=== PATIENT | female | born 1940 | race African-American/Black ===

== ENCOUNTER 2020-01-25 14:20 | Emergency (ER) | payer MEDICARE, SELFPAY ==
[2020-01-25 14:50] VITALS: BP 175/94; PULSE 85; RESP 18; TEMP 36.7; O2SAT 100; BMI 26.4
--- NOTE | 2020-01-25 14:59 | XR_ITS ---
EXAMINATION: XR SHOULDER , LEFT CLINICAL INFORMATION: COMPARISON: None available at the time of this dictation. TECHNIQUE: AP external rotation, Grashey, scapular Y, and axillary views of the shoulder. FINDINGS: BONES: There is no fracture or dislocation, no osteolytic or osteoblastic lesion. JOINTS: Glenohumeral joint is properly positioned. There is mild degenerative osteoarthritis of the acromioclavicular joint. SOFT TISSUE AND INCLUDED LUNG: Normal. 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 No fracture or dislocations.
--- NOTE | 2020-01-25 14:59 | XR_ITS ---
EXAMINATION: XR SHOULDER , LEFT CLINICAL INFORMATION: COMPARISON: None available at the time of this dictation. TECHNIQUE: AP external rotation, Grashey, scapular Y, and axillary views of the shoulder. FINDINGS: BONES: There is no fracture or dislocation, no osteolytic or osteoblastic lesion. JOINTS: Glenohumeral joint is properly positioned. There is mild degenerative osteoarthritis of the acromioclavicular joint. SOFT TISSUE AND INCLUDED LUNG: Normal. 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 No fracture or dislocations.
--- NOTE | 2020-01-25 15:00 | ED.EXTPRO ---
HPI - Extremity Problem General Chief complaint: Extremity Injury, Upper Stated complaint: ARM PAIN Time Seen by Provider: 01/25/20 14:59 Source: patient Mode of arrival: ambulatory History of Present Illness HPI Narrative: 79-year-old female with a past medical history of diabetes, hypertension, osteoporosis, presenting to ED complaining of left shoulder pain x1 year s/p 2 mechanical falls. Denies falls/injury recently. Reports pain/decreased ROM. Denies numbness, tingling, weakness MD Complaint: extremity pain Related Data Previous Rx's Medication Instructions Recorded acetaminophen [Tylenol Extra 500 mg PO Q6H PRN #20 tab 01/25/20 Strength] cyclobenzaprine 5 mg PO Q8H PRN 5 Days #14 tab 01/25/20 lidocaine [Lidoderm] 1 patch TOPICAL DAILY PRN #30 ea 01/25/20 MDD remove after 12 hours naproxen 500 mg PO BID PRN 10 Days #20 tab 01/25/20 Allergies Allergy/AdvReac Type Severity Reaction Status Date / Time No Known Allergies Allergy Mild NKA Unverified 11/14/19 16:54 N.K.D.A. Allergy Unknown Uncoded 09/06/19 00:00 Review of Systems Review of Systems: Constitutional: No Weight loss, No Fever, No Chills Musculoskeletal: + joint pain, No Myalgias, No Joint Swelling Skin: No Skin Lesions, No rash Neuro: No Weakness, No Numbness Yes all other systems are reviewed and are negative [facility] Past Medical History Attestation statement: The following information was validated with the patient. Medical History (Updated 01/25/20 @ 15:50 by CHEPE Michaud) Diabetes HTN (hypertension) Osteoporosis Social History Social History Alcohol intake: never Smoked in Last 30 Days: No Use of substances other than those prescribed or required for medical reasons: No Advance Directives: No Advance Directives Information Provided: No Physical Exam Vital Signs: Vital Signs: Last Vital Signs Temp 98.0 F 01/25/20 14:50 Pulse 85 01/25/20 14:50 Resp 18 01/25/20 14:50 BP 175/94 H 01/25/20 14:50 Pulse Ox 100 01/25/20 14:50 Body Mass Index 26.4 Const: General: cooperative and healthy appearing Orientation/consciousness: patient oriented x3 Limitations: no limitations HENMT: Head: Yes normal to inspection Ears: hearing grossly normal bilaterally General nose exam: Normal external nose present Face and sinus: Yes normal facial exam Eyes: General: appearance normal, both eyes and all related structures EOM: EOMs intact bilaterally Neck: Other: No midline cervical spinous tenderness. + left trapezius muscle tenderness Neck: Yes normal visual inspection Chest: Chest palpation & inspection: normal inspection of the chest Resp: Effort & Inspection: normal respiratory effort Cardio: Rate: regular rate Peripheral pulses: radial pulses present Skin: Rashes: no rashes Wounds: no wounds Neuro: General: patient oriented x3 Gait exam (Neuro): Normal gait present Extrem: Other: + lateral left clavicular ttp and + left shoulder ttp. No appreciable deformity. Left shoulder internal rotation, and abduction limited secondary to pain. NV intact General: Yes normal to inspection Course Course Course Narrative: -osteoarthritis. No fracture or dislocation> results discussed with squaring machine operator. Discussed follow-up with Orthopedics for likely MRI. Patient verbalized understanding feel safe for discharge home MDM - Extremity (Nontraumatic) MDM Narrative Medical decision making narrative: Concern for old fracture vs tendon/ligamental injury vs MSK pain Discharge Plan Discharge Clinical Impression: Left shoulder pain Qualifiers: Chronicity: acute Qualified Code(s): M25.512 - Pain in left shoulder Patient Disposition: Home, Self-Care Instructions: Shoulder Pain (ED) Additional Instructions: Your x-ray showed degenerative osteoarthritis, no fracture or dislocation. You need to follow-up with an real estate specialist, likely need MRI to evaluate her tendons/ligaments. Flexeril as a muscle relaxer, take at night makes you drowsy, do not drive, drink alcohol, or operate machinery while taking it. Naproxen as anti-inflammatory/pain medication, take with food. In addition take Tylenol. Lidoderm patches or numbing patches, apply to painful area. If symptoms persist or worsen, become unbearable, you develop weakness return to the ED Almonte radiograf?a mostr? osteoartritis degenerativa, sin fractura ni dislocaci?n. Debe realizar un seguimiento con un especialista en ortopedia, probablemente necesite fernando resonancia magn?yasmin para evaluar chris tendones / ligamentos. Flexeril aurelio relajante muscular, tomarlo por la noche le produce liliane?o, no conducir, beber alcohol ni manejar maquinaria mientras lo nany. Naproxeno aurelio medicamento antiinflamatorio / analg?sico, t?mahoney con alimentos. Adem?s, tome Tylenol. Los parches de Lidoderm o los parches adormecedores se aplican en el ?shantel dolorida. Si los s?ntomas persisten o empeoran, se vuelven insoportables, desarrolla debilidad, vuelve al servicio de urgencias Prescriptions: New acetaminophen [Tylenol Extra Strength] 500 mg tablet 500 mg PO Q6H PRN (Reason: pain or fever) Qty: 20 RF: 0 lidocaine [Lidoderm] 5 % adhesive patch,medicated 1 patch topical DAILY MDD remove after 12 hours PRN (Reason: pain) Qty: 30 RF: 0 naproxen 500 mg tablet 500 mg PO BID PRN (Reason: pain) 10 Days Qty: 20 RF: 0 cyclobenzaprine 5 mg tablet 5 mg PO Q8H PRN (Reason: pain (scale score 7-10)) 5 Days Qty: 14 RF: 0 Referrals: Alondra Butt MD [Physician] - 1 week Print Language: Kiswahili
[2020-01-25] MEDS: Acetaminophen 325 MG TABLET 650 MG PO (15:26)
[2020-01-25] MEDS: oxyCODONE HCl Immed Release 5 MG TABLET PO (15:26)
== END 2020-01-25 16:13 | disposition home or self-care (01) ==
PROVIDERS: Emergency Provider Internal Medicine
DX: M25.512 Pain in left shoulder (principal); E11.9 Type 2 diabetes mellitus without complications; Z79.899 Other long term (current) drug therapy
CPT/HCPCS: 73000; 73030; 99283

== ENCOUNTER 2020-01-30 07:45 | Outpatient (REF) | payer MEDICARE, SELFPAY ==
--- NOTE | 2020-01-30 08:45 | P.BOP_ITS ---
Brief Operative Note Date of Service: 01/30/20 Pre-op diagnosis: Nontoxic multinodular goiter Post-op diagnosis: same Procedure: This procedure was explained to the patient. Alternatives, risks and benefits were discussed. Written consent was obtained. After sterile preparation of the skin, fine-needle aspiration biopsy of Right mid pole medial thyroid nodule size 1.2 x 0.9 x 1.1 cm was performed under direct ultrasound guidance to confirm accurate needle placement. This nodule had a calcified border. Several attempts were performed only 1 pass went through the calcified capsule. No further attempts were performed. Attemps were performed with 27 gauge needles. Sample was submitted to cytology, initial cytology reading was adequate. No passes were dedicated for [employer] genomic sequencing dental treatment coordinator test. Patient tolerated procedure well. Aftercare instructions were provided. Ultrasound had described a left mid pole nodule which was very heterogeneous ill-defined slightly hypoechoic. On real-time ultrasound this was just an area of heterogeneity. No biopsy was performed in the left lobe. Impression: uncomplicated fine-needle aspiration biopsy of right mid pole medial thyroid nodule under direct ultrasound guidance. Surgeon: Boone Hebert MD Anesthesia: local (Lidocaine 1% 2 mL) Estimated blood loss (mL): 0 Condition: stable Disposition: same day
[2020-01-30] MEDS: Lidocaine HCl 1 % MPF 5 ML VIAL SUBCUT (11:49)
== END 2020-01-30 07:46 | disposition home or self-care (01) ==
LOC: HO.US 07:45
PROVIDERS: Visit Provider Internal Medicine Endocrinology, Diabetes & Metabolism
DX: E04.2 Nontoxic multinodular goiter (principal)
CPT/HCPCS: 10005; 88172; 88173

== ENCOUNTER → 2020-02-11 09:40 | Outpatient (BNVA) | payer MEDICARE, SELFPAY | PROVIDERS: Visit Provider Orthopaedic Surgery | DX: M75.42 Impingement syndrome of left shoulder (principal) | CPT/HCPCS: 20610; 99202; J1040 ==

== ENCOUNTER → 2020-02-12 08:15 | Outpatient (BNVA) | payer MEDICARE, SELFPAY | PROVIDERS: PCP Internal Medicine; Referring Provider Internal Medicine; Visit Provider Internal Medicine Endocrinology, Diabetes & Metabolism | DX: Z13.89 Encounter for screening for other disorder (principal) | CPT/HCPCS: Q3014 ==

== ENCOUNTER 2020-02-24 10:10 | Outpatient (REF) | payer MEDICARE, SELFPAY ==
[2020-02-24 11:18] LABS: Albumin Level 4.1 g/dL (3.5-5.0); Calcium 9.3 mg/dL (8.4-10.2)
[2020-02-24 11:48] LABS: Thyroid Stimulating Hormone 8.39 uIU/mL (0.32-4.0); Vitamin D 25-OH Total 26.9 ng/mL (>30)
[2020-02-25 20:22] LABS: Calcium (PTHI) 9.4 mg/dL (8.6-10.4); PTHI 59 pg/mL (14-64)
[2020-02-27 21:47] LABS: VITAMIN D (1,25 OH) D3 62 pg/mL; Vit D (1,25-Dihydroxy) Total 62 pg/mL (18-72); Vitamin D (1,25 OH) D2 <8 pg/mL
[2020-03-02 02:07] LABS: N-Telopeptide 33 (see note); NTXCreaRU 43 mg/dL (20-275)
== END 2020-02-24 10:11 | disposition home or self-care (01) ==
LOC: HO.LAB 10:10
PROVIDERS: PCP Internal Medicine; Visit Provider Internal Medicine Endocrinology, Diabetes & Metabolism
DX: M81.0 Age-related osteoporosis without current pathological fracture (principal); E04.2 Nontoxic multinodular goiter; R89.9 Unspecified abnormal finding in specimens from other organs, systems and tissues
CPT/HCPCS: 82040; 82306; 82310; 82523; 82652; 83970; 84439; 84443

== ENCOUNTER 2020-05-15 | Outpatient (REF) | payer MEDICARE, SELFPAY ==
--- NOTE | ~2020-05-15 | XR_ITS ---
EXAMINATION: XR DORSAL SPINE XR LUMBAR SPINE CLINICAL INFORMATION: Low back pain and midback pain. COMPARISON: None TECHNIQUE: Lumbar spine 5 views. Dorsal spine 3 views. FINDINGS: LUMBAR SPINE: There is normal lumbar lordosis. The vertebral heights and alignment are normal. There is loss of L5-S1 disc height. There is no pars defect or listhesis. No visible acute fracture, dislocation or lytic process seen. The soft tissues are normal. The SI joints are normal. DORSAL SPINE: There is normal thoracic kyphosis. The vertebral heights, alignment and disc heights are normal. There is no visible acute fracture, dislocation or lytic process seen. There is a bilobed calcification right anterior neck adjacent to the trachea question lymph node. XR/XR lumbar spine 4V min IMPRESSION: Degenerative disc changes with vacuum disc phenomena L5-S1 disc level. No pars defect or listhesis seen. Unremarkable dorsal spine exam.
--- NOTE | ~2020-05-15 | XR_ITS ---
EXAMINATION: XR DORSAL SPINE XR LUMBAR SPINE CLINICAL INFORMATION: Low back pain and midback pain. COMPARISON: None TECHNIQUE: Lumbar spine 5 views. Dorsal spine 3 views. FINDINGS: LUMBAR SPINE: There is normal lumbar lordosis. The vertebral heights and alignment are normal. There is loss of L5-S1 disc height. There is no pars defect or listhesis. No visible acute fracture, dislocation or lytic process seen. The soft tissues are normal. The SI joints are normal. DORSAL SPINE: There is normal thoracic kyphosis. The vertebral heights, alignment and disc heights are normal. There is no visible acute fracture, dislocation or lytic process seen. There is a bilobed calcification right anterior neck adjacent to the trachea question lymph node. XR/XR thoracic spine 3V IMPRESSION: Degenerative disc changes with vacuum disc phenomena L5-S1 disc level. No pars defect or listhesis seen. Unremarkable dorsal spine exam.
== END 2020-05-15 00:01 ==
LOC: HO.XRAY
PROVIDERS: PCP Family Medicine; Visit Provider Emergency Medicine
DX: M75.42 Impingement syndrome of left shoulder (principal); M54.5 Low back pain; M54.9 Dorsalgia, unspecified; E11.9 Type 2 diabetes mellitus without complications; I10 Essential (primary) hypertension; E03.9 Hypothyroidism, unspecified; E04.2 Nontoxic multinodular goiter; M81.0 Age-related osteoporosis without current pathological fracture; E55.9 Vitamin D deficiency, unspecified
CPT/HCPCS: 20610; 72072; 72110; 99212; J1040

== ENCOUNTER 2020-05-21 09:35 | Outpatient (REF) | payer MEDICARE, SELFPAY ==
--- NOTE | 2020-05-21 10:39 | PM.OP ---
Brief Operative Note Date of Service: 05/21/20 Pre-op diagnosis: NONTOXIC MULTINODULAR GOITER Post-op diagnosis: same Procedure: This procedure was explained to the patient. Alternatives, risks and benefits were discussed. Written consent was obtained. After sterile preparation of the skin, fine-needle aspiration biopsy of right mid pole medial thyroid nodule size 1.2 x 0.9 x 1.1 cm was performed under direct ultrasound guidance to confirm accurate needle placement. Three passes were performed with 27 gauge needles. Sample was submitted to cytology, initial cytology reading was non diagnostic. This nodule has egg shell calcified under nodule. Was unable to penetrate the nodule well. As I was not getting any follicular cells I stop the procedure. Patient tolerated procedure well. Aftercare instructions were provided. Impression: uncomplicated fine-needle aspiration biopsy of right mid medial thyroid nodule attempt under direct ultrasound guidance. Surgeon: Boone Hebert MD Anesthesia: local (Lidocaine 1%) Estimated blood loss (mL): 0 Condition: stable Disposition: same day
== END 2020-05-21 09:36 | disposition home or self-care (01) ==
LOC: HO.US 09:35
PROVIDERS: Visit Provider Internal Medicine Endocrinology, Diabetes & Metabolism
DX: R89.9 Unspecified abnormal finding in specimens from other organs, systems and tissues (principal); E04.2 Nontoxic multinodular goiter
CPT/HCPCS: 88172; 88173; 88177

== ENCOUNTER 2020-10-06 08:47 | Outpatient (REF) | payer MEDICARE, SELFPAY ==
--- NOTE | ~2020-10-06 | US_ITS ---
EXAMINATION: US THYROID CLINICAL INFORMATION: Unspecified abnormal findings and specimens from other organs, systems and tissues. COMPARISON: Ultrasound thyroid soft tissues neck 09/16/2019 and 10/12/2007. TECHNIQUE: Linear transducer grayscale and color Doppler examination with attention to the region of the thyroid. FINDINGS: SIZE: Measurements of the thyroid lobes and nodules are given in sagittal, anteroposterior and transverse dimensions respectively. Right Thyroid Lobe: 4.4 x 1.3 x 1.9 cm, volume 5.5 mL. Previously 5.1 x 1.7 x 1.6 cm, volume 7.2 mL. Parenchyma: The gland echotexture is heterogeneous. Thyroid vascularity is normal. Left Thyroid Lobe: 5.2 x 1.4 x 1.2 cm, volume 4.6 mL. Previously 4.5 x 1.3 x 1.4 cm, volume 4.2 mL. Parenchyma: The gland echotexture is heterogeneous. Thyroid vascularity is normal. Isthmus: 0.6 cm in maximum AP dimension. Previously 0.3 cm. Estimated total number of nodules greater than or equal to 1 cm: 3. [employer] [id number] Lead nodules are described as follows: 1. Location: Left lower pole. Size: 1.6 x 1.3 x 1.1 cm, volume 1.2 mL. Previously: 1.3 x 0.9 x 1.2 cm, volume 0.7 mL. Nodule characteristics: Composition: Solid/almost completely solid (2). Echogenicity: Isoechoic (1). Shape: Not taller than wide (0). Margins: Lobulated (2). Echogenic Foci: None (0). ACR TI-RADS total points: 5 ACR TI-RADS category: 4 Significant change in size (>/= 20% in 2 dimensions and minimal increase of 2 mm or 50% or greater increase in volume): Yes Change in features: No Change in ACR TI-RADS risk category: No 2. Location: Right upper. Size: 0.8 x 0.7 x 0.6 cm, volume 0.2 mL. Previously: 0.8 x 0.5 x 0.6 cm, volume 0.1 mL. Nodule characteristics: Composition: Solid (2). Echogenicity: Isoechoic (1). Shape: Not taller than wide (0). Margins: Smooth (0). Echogenic Foci: None (0). ACR TI-RADS total points: 3 ACR TI-RADS category: 3 Significant change in size (>/= 20% in 2 dimensions and minimal increase of 2 mm or 50% or greater increase in volume): No Change in features: No Change in ACR TI-RADS risk category: No 3. Location: Right midpole. Size: 1.0 x 0.9 x 0.8 cm, volume 0.4 mL. Previously: 1.0 x 0.8 x 0.9 cm, volume 0.4 mL. Nodule characteristics: Composition: Cannot be determined (2). Echogenicity: Cannot be determined (1). Shape: Not taller than wide (0). Margins: Smooth (0). Echogenic Foci: Peripheral calcifications (2). ACR TI-RADS total points: 5 ACR TI-RADS category: 4 Significant change in size (>/= 20% in 2 dimensions and minimal increase of 2 mm or 50% or greater increase in volume): No Change in features: No Change in ACR TI-RADS risk category: No 4. Location: Right midpole. Size: 1.2 x 0.8 x 0.8 cm, volume 0.4 mL. Previously: 1.2 x 0.9 x 1.1 cm, volume 0.6 mL. Nodule characteristics: Composition: Cannot be determined (2). Echogenicity: Cannot be determined (1). Shape: Not taller than wide (0). Margins: Smooth (0). Echogenic Foci: Peripheral calcifications (2). ACR TI-RADS total points: 5 ACR TI-RADS category: 4 Significant change in size (>/= 20% in 2 dimensions and minimal increase of 2 mm or 50% or greater increase in volume): No Change in features: No Change in ACR TI-RADS risk category: No 5. Location: Right midpole. Size: 0.8 x 0.7 x 0.3 cm, volume 0.1 mL. Previously: Not seen previously. Nodule characteristics: Composition: Solid (2). Echogenicity: Isoechoic (1). Shape: Not taller than wide (0). Margins: Smooth (0). Echogenic Foci: None (0). ACR TI-RADS total points: 3 ACR TI-RADS category: 3 Significant change in size (>/= 20% in 2 dimensions and minimal increase of 2 mm or 50% or greater increase in volume): Not applicable Change in features: Not applicable Change in ACR TI-RADS risk category: Not applicable. The nodule is new. NODES: No lymphadenopathy is seen in the tissue surrounding the thyroid gland. US/US thyroid IMPRESSION: 1. There is a normal-sized thyroid gland which is heterogeneous but with normal vascularity. 2. A total of 5 nodules are seen in the gland. 3. The nodules aren't TR 3 and TR 4 and biopsy is not suggested at this time. Follow-up ultrasound is recommended as noted below. ACR TI-RADS RECOMMENDATION REFERENCE: Ultrasound-guided fine-needle aspiration, followup ultrasound, no further follow up. * TR1 (0 point) and TR 2 (2 points): No FNA or follow up * TR3 (3 points): FNA if more than or equal to 2.5 cm in maximum dimension, followup ultrasound in 1, 3 and 5 years if 1.5 to 2.4 cm in maximum dimension. * TR4 (4-6 points): FNA if more than or equal to 1.5 cm in maximum dimension, followup ultrasound in 1, 2, 3 and 5 years if 1 to 1.4 cm in maximum dimension. * TR5 (more than or equal to 7 points): FNA if more than or equal to 1 cm in maximum dimension, followup ultrasound every year for 5 years if 0.5 to 0.9 cm in maximum dimension. * TR3, TR4 or TR5 nodules that are below the size threshold for follow up receive no follow up.
== END 2020-10-06 08:48 | disposition home or self-care (01) ==
LOC: HO.US 08:47
PROVIDERS: PCP Family Medicine; Visit Provider Internal Medicine Endocrinology, Diabetes & Metabolism
DX: R89.9 Unspecified abnormal finding in specimens from other organs, systems and tissues (principal); E04.2 Nontoxic multinodular goiter
CPT/HCPCS: 76536

== ENCOUNTER 2020-11-18 09:28 | Outpatient (REF) | payer MEDICARE, SELFPAY ==
--- NOTE | ~2020-11-18 | MM_ITS ---
EXAMINATION: BONE DENSITOMETRY CLINICAL INDICATION: Osteoporosis. COMPARISON: Previous BD dated 11/02/2018 and baseline BD dated 04/29/2008. TECHNIQUE: Using a [employer] DXA System (software version: 13.1) manufactured by [employer], dual-energy x-ray absorptiometry was performed of the lumbar spine and left hip. The images are of good technical quality. Summary results are attached. FINDINGS: AP SPINE L1-L4: Current: BMD 0.733 g/cm2, Z-score -1.5, T-score -3.7, osteoporosis, 0.4% decrease from previous, 0.3% decrease from baseline (<5% change is not significant). Prior: BMD 0.736 g/cm2. Baseline: BMD 0.735 g/cm2. LEFT FEMUR, NECK: Current: BMD 0.604 g/cm2, Z-score -0.8, T-score -3.1, osteoporosis. Prior: BMD 0.692 g/cm2. Baseline: BMD 0.627 g/cm2. LEFT FEMUR, TOTAL: Current: BMD 0.628 g/cm2, Z-score -0.8, T-score -3.0, osteoporosis, 11.4% decrease from previous, 1.6% decrease from baseline (<5% change is not significant). Prior: BMD 0.709 g/cm2. Baseline: BMD 0.638 g/cm2. IDENTIFIED RISK FACTORS: Menopause, osteoporosis, low calcium intake. HISTORY OF FRACTURE: None listed. MEDICATIONS: Calcium, vitamin D. MM/XR DEXA axial skeleton IMPRESSION: 1. DIAGNOSIS: Osteoporosis based on the lowest T-score value of -3.7 in the lumbar spine applying World Health Organization criteria. 2. 10-YEAR FRACTURE RISK PREDICTION, FRAX: Major osteoporotic fracture (clinical spine, forearm, hip or shoulder) 15.5%. Hip fracture 6.5%. 3. Treatment Recommendations: NOF guidelines recommend consideration for treatment in postmenopausal women and men age 50 and older presenting with the following: -A hip or vertebral (clinical or morphometric) fracture. -T-score less than or equal to -2.5 at the femoral neck or spine after appropriate evaluation to exclude secondary causes. -Low bone mass at the hip or spine and a 10-year fracture probability by FRAX of greater than or equal to 3% for hip fracture or greater than or equal to 20% for major osteoporotic fracture based on the [place] adapted WHO algorithm. 4. Other Recommendations: All treatment decisions require clinical judgment and consideration of individual patient factors, including patient preferences, comorbidities, previous drug use, risk factors not captured in the FRAX model (e.g. frailty, falls, vitamin D deficiency, increased bone turnover, interval significant decline in bone density) and possible under or overestimation of fracture risk by FRAX. Additional medical evaluation for secondary cause of low bone mineral density may be appropriate. FUTURE SCAN RECOMMENDATION: People with diagnosed cases of osteoporosis or at high risk for fracture should have regular bone mineral density tests. For patients eligible for Medicare, routine testing is allowed once every 2 years. The testing frequency can be increased to one year for patients who have rapidly progressing disease, those who are receiving or discontinuing medical therapy to restore bone mass, or have additional risk factors.
== END 2020-11-18 09:29 | disposition home or self-care (01) ==
LOC: HO.MAMMO 09:28
PROVIDERS: PCP Family Medicine; Visit Provider Family Medicine
DX: Z13.820 Encounter for screening for osteoporosis (principal); M81.0 Age-related osteoporosis without current pathological fracture; Z78.0 Asymptomatic menopausal state; Z79.899 Other long term (current) drug therapy
CPT/HCPCS: 77080

== ENCOUNTER 2020-12-15 09:40 | Outpatient (REF) | payer MEDICARE, SELFPAY ==
--- NOTE | ~2020-12-15 | XR_ITS ---
EXAMINATION: XR SHOULDER, LEFT CLINICAL INFORMATION: Left shoulder pain. COMPARISON: 01/25/2020 TECHNIQUE: AP external rotation, Grashey, scapular Y, and axillary views of the left shoulder. FINDINGS: The bones and soft tissues are normal aside from redemonstration of mild degenerative changes at the acromioclavicular joint. No fracture. Glenohumeral alignment is anatomic with normal joint space. No abnormal soft tissue calcifications. XR/XR shoulder LT min 2V IMPRESSION: Mild degenerative changes AC joint again noted.
== END 2020-12-15 09:41 | disposition home or self-care (01) ==
LOC: HO.XRAY 09:40
PROVIDERS: PCP Family Medicine; Visit Provider Family Medicine
DX: M25.512 Pain in left shoulder (principal)
CPT/HCPCS: 73030

== ENCOUNTER → 2021-01-04 09:39 | Outpatient (BNVA) | payer OTHER, SELFPAY | PROVIDERS: PCP Family Medicine; Visit Provider Physician Assistant | DX: M75.02 Adhesive capsulitis of left shoulder (principal) | CPT/HCPCS: 20610; 99212; J1040 ==

== ENCOUNTER → 2021-03-01 09:32 | Outpatient (BNVA) | payer MEDICARE, SELFPAY | PROVIDERS: PCP Family Medicine; Visit Provider Physician Assistant | DX: M75.02 Adhesive capsulitis of left shoulder (principal) | CPT/HCPCS: 99212 ==

== ENCOUNTER → 2021-04-13 09:28 | Outpatient (BNVA) | payer MEDICARE, SELFPAY | PROVIDERS: PCP Family Medicine; Visit Provider Internal Medicine Endocrinology, Diabetes & Metabolism | DX: E06.3 Autoimmune thyroiditis (principal); E03.8 Other specified hypothyroidism; E04.2 Nontoxic multinodular goiter; M81.0 Age-related osteoporosis without current pathological fracture; Z79.899 Other long term (current) drug therapy | CPT/HCPCS: 99212 ==

== ENCOUNTER 2021-04-16 09:37 | Outpatient (REF) | payer MEDICARE, SELFPAY ==
[2021-04-16 11:27] LABS: Free T4 (Free Thyroxine) 0.87 ng/dL (0.71-1.85); Thyroid Stimulating Hormone 3.19 uIU/mL (0.32-4.0)
[2021-04-20 10:46] LABS: PEU-Protein Creat Ratio Rand 0.231 (0.021-0.161); PEU-Rand. Prot/Creat Ratio 231 mg/g creat (21-161); PEU-Random Ur. Gamma Globulin 0 %; PEU-Random Urine A1 Globulin 0 %; PEU-Random Urine A2 Globulin 0 %; PEU-Random Urine Albumin 100 %; PEU-Random Urine Beta Globulin 0 %; PEU-Random Urine Creatinine 26 mg/dL (20-275); PEU-Random Urine Protein 6 mg/dL (5-24)
[2021-04-20 16:01] LABS: Prot Elec - Albumin 4.4 g/dL (3.8-4.8); Prot Elec - Alpha1 0.3 g/dL (0.2-0.3); Prot Elec - Alpha2 0.8 g/dL (0.5-0.9); Prot Elec - Beta 1 0.4 g/dL (0.4-0.6); Prot Elec - Beta 2 0.3 g/dL (0.2-0.5); Prot Elec - Gamma 0.8 g/dL (0.8-1.7); Prot Elec - Total Protein 6.9 g/dL (6.1-8.1)
== END 2021-04-16 09:38 | disposition home or self-care (01) ==
LOC: HO.LAB 09:37
PROVIDERS: PCP Family Medicine; Visit Provider Internal Medicine Endocrinology, Diabetes & Metabolism
DX: E04.2 Nontoxic multinodular goiter (principal); M81.0 Age-related osteoporosis without current pathological fracture
CPT/HCPCS: 82570; 84156; 84165; 84166; 84439; 84443

== ENCOUNTER → 2021-04-26 09:35 | Outpatient (BNVA) | payer MEDICARE, SELFPAY | PROVIDERS: PCP Family Medicine; Visit Provider Physician Assistant | DX: M75.02 Adhesive capsulitis of left shoulder (principal); M75.102 Unspecified rotator cuff tear or rupture of left shoulder, not specified as traumatic | CPT/HCPCS: 20610; 99212; J1020 ==

== ENCOUNTER → 2021-05-04 09:22 | Outpatient (BNVA) | payer MEDICARE, SELFPAY | PROVIDERS: PCP Family Medicine; Visit Provider Internal Medicine Endocrinology, Diabetes & Metabolism | DX: Z13.89 Encounter for screening for other disorder (principal) ==

== ENCOUNTER → 2021-10-25 09:11 | Outpatient (BNVA) | payer MEDICARE, SELFPAY | PROVIDERS: PCP Family Medicine; Visit Provider Physician Assistant | DX: M75.02 Adhesive capsulitis of left shoulder (principal); M75.102 Unspecified rotator cuff tear or rupture of left shoulder, not specified as traumatic; E11.9 Type 2 diabetes mellitus without complications | CPT/HCPCS: 99212; J1020 ==

== ENCOUNTER 2021-11-11 09:49 | Outpatient (REF) | payer OTHER, SELFPAY ==
--- NOTE | ~2021-11-11 | US_ITS ---
EXAMINATION: US THYROID CLINICAL INFORMATION: Nontoxic multinodular goiter. COMPARISON: Ultrasound soft tissue head/neck thyroid dated 10/06/2020 and 09/16/2019. TECHNIQUE: Linear transducer grayscale and color Doppler examination with attention to the region of the thyroid. FINDINGS: SIZE: Measurements of the thyroid lobes and nodules are given in sagittal, anteroposterior and transverse dimensions respectively. Right Thyroid Lobe: 4.9 x 1.6 x 1.8 cm, volume 7.4 mL. Previously 4.4 x 1.3 x 1.9 cm, volume 5.5 mL. Parenchyma: The gland echotexture is heterogeneous. Thyroid vascularity is normal. Left Thyroid Lobe: 4.3 x 1.2 x 1.3 cm, volume 3.5 mL. Previously 5.2 x 1.4 x 1.2 cm, volume 4.6 mL. Parenchyma: The gland echotexture is heterogeneous. Thyroid vascularity is normal. Isthmus: 0.4 cm in maximum AP dimension. Previously 0.3 cm. Estimated total number of nodules greater than or equal to 1 cm: 3. [employer] nodules are described as follows: 1. Location: Right superior. Size: 0.8 x 0.4 x 0.5 cm, volume 0.1 mL. Previously: 0.8 x 0.7 x 0.6 cm, volume 0.2 mL. Nodule characteristics: Composition: Solid (2). Echogenicity: Hypoechoic (2). Shape: Not taller than wide (0). Margins: Smooth (0). Echogenic Foci: None (0). ACR TI-RADS total points: 4 ACR TI-RADS category: 4 Significant change in size (>/= 20% in 2 dimensions and minimal increase of 2 mm or 50% or greater increase in volume): No 2. Location: Right mid medial. Size: 1.1 x 0.8 x 1.0 cm, volume 0.2 mL. Previously: 1.0 x 0.9 x 0.8 cm, volume 0.4 mL. Nodule characteristics: Composition: Cannot be determined (2). Echogenicity: Cannot be determined (1). Shape: Not taller than wide (0). Margins: Smooth (0). Echogenic Foci: Peripheral calcifications (2). ACR TI-RADS total points: 5 Previous: 5 ACR TI-RADS category: 4 Previous: 4 Significant change in size (>/= 20% in 2 dimensions and minimal increase of 2 mm or 50% or greater increase in volume): No 3. Location: Right mid lateral. Size: 1.3 x 1.0 x 1.1 cm, volume 0.7 mL. Previously: 1.2 x 0.8 x 0.8 cm, volume 0.4 mL. Nodule characteristics: Composition: Cannot be determined (2). Echogenicity: Cannot be determined (1). Shape: Not taller than wide (0). Margins: Smooth (0). Echogenic Foci: Peripheral calcifications (2). ACR TI-RADS total points: 5 Previous: 5 ACR TI-RADS category: 4 Previous: 4 Significant change in size (>/= 20% in 2 dimensions and minimal increase of 2 mm or 50% or greater increase in volume): Yes 4. Location: Left inferior. Size: 1.3 x 0.8 x 0.9 cm, volume 0.5 mL. Previously: 1.6 x 1.3 x 1.1 cm, volume 1.2 mL. Nodule characteristics: Composition: Solid (2). Echogenicity: Hyperechoic (1). Shape: Taller than wide (3), in retrospect unchanged from prior. Margins: Smooth (0), in retrospect unchanged from prior. Echogenic Foci: None (0). ACR TI-RADS total points: 6 ACR TI-RADS category: 4 Significant change in size (>/= 20% in 2 dimensions and minimal increase of 2 mm or 50% or greater increase in volume): No NODES: No lymphadenopathy is seen in the tissue surrounding the thyroid gland. US/US thyroid IMPRESSION: 1.3 cm TR 4 right mid thyroid lateral thyroid nodule is increased in size from prior which meets criteria for tissue sampling if not already obtained. Stable 1.1 cm TR 4 right mid medial thyroid nodule and stable 1.3 cm TR 4 left inferior thyroid nodule which meets criteria for tissue sampling not already obtained. A 0.8 cm TR 4 right superior thyroid nodule is unchanged in size. This does not meet criteria for follow-up given size less than 1 cm. ACR TI-RADS RECOMMENDATION REFERENCE: Ultrasound-guided fine-needle aspiration, followup ultrasound, no further follow up. * TR1 (0 point) and TR 2 (2 points): No FNA or follow up * TR3 (3 points): FNA if more than or equal to 2.5 cm in maximum dimension, followup ultrasound in 1, 3 and 5 years if 1.5 to 2.4 cm in maximum dimension. * TR4 (4-6 points): FNA if more than or equal to 1.5 cm in maximum dimension, followup ultrasound in 1, 2, 3 and 5 years if 1 to 1.4 cm in maximum dimension. * TR5 (more than or equal to 7 points): FNA if more than or equal to 1 cm in maximum dimension, followup ultrasound every year for 5 years if 0.5 to 0.9 cm in maximum dimension. * TR3, TR4 or TR5 nodules that are below the size threshold for follow up receive no follow up.
== END 2021-11-11 09:50 | disposition home or self-care (01) ==
LOC: HO.US 09:49
PROVIDERS: PCP Family Medicine; Visit Provider Internal Medicine Endocrinology, Diabetes & Metabolism
DX: E04.2 Nontoxic multinodular goiter (principal)
CPT/HCPCS: 76536

== ENCOUNTER 2022-05-23 14:58 | Outpatient (REF) | payer OTHER, SELFPAY ==
--- NOTE | ~2022-05-23 | XR_ITS ---
EXAMINATION: XR RIBS, RIGHT WITH PA CHEST CLINICAL INFORMATION: Pain status-post fall. COMPARISON: Chest radiographs dated 07/27/2017. TECHNIQUE: 3 views of the left ribs were obtained, together with a PA view of the chest. FINDINGS: There is mild bibasilar linear scar/subsegmental atelectasis. No consolidation, pneumothorax, or pleural effusion. The cardiomediastinal silhouette and pulmonary vasculature are normal. There are calcified mediastinal lymph nodes, unchanged from comparison. A benign, calcified nodule seen at the medial right apex. There are atherosclerotic calcifications and tortuosity of the thoracic aorta. Osseous structures are unremarkable. Ribs are intact. No fractures are identified. XR/XR thoracic spine 2V IMPRESSION: There is mild bibasilar linear atelectasis. No pleural effusion or pneumothorax is seen. No focal rib fracture is noted. EXAMINATION: XR THORACIC SPINE CLINICAL INFORMATION: Pain status-post fall. COMPARISON: None available. TECHNIQUE: Frontal, lateral and swimmer's views of the thoracic spine were obtained. FINDINGS: There is a mild to moderate T12 anterior wedge compression fracture, which is unchanged from 05/15/2020. Vertebral body heights are otherwise normal. Alignment is normal, and the disc spaces are well-maintained. No acute fracture or spondylolisthesis is seen. The posterior elements are intact. There are aortic atherosclerotic calcifications. IMPRESSION: 1. There is a stable mild to moderate T12 anterior wedge compression fracture. 2. No acute fracture or spondylolisthesis is seen. 3. No thoracic disc spaces are well-maintained.
--- NOTE | ~2022-05-23 | XR_ITS ---
EXAMINATION: XR RIBS, RIGHT WITH PA CHEST CLINICAL INFORMATION: Pain status-post fall. COMPARISON: Chest radiographs dated 07/27/2017. TECHNIQUE: 3 views of the left ribs were obtained, together with a PA view of the chest. FINDINGS: There is mild bibasilar linear scar/subsegmental atelectasis. No consolidation, pneumothorax, or pleural effusion. The cardiomediastinal silhouette and pulmonary vasculature are normal. There are calcified mediastinal lymph nodes, unchanged from comparison. A benign, calcified nodule seen at the medial right apex. There are atherosclerotic calcifications and tortuosity of the thoracic aorta. Osseous structures are unremarkable. Ribs are intact. No fractures are identified. XR/XR ribs RT min 3V w CXR1V IMPRESSION: There is mild bibasilar linear atelectasis. No pleural effusion or pneumothorax is seen. No focal rib fracture is noted. EXAMINATION: XR THORACIC SPINE CLINICAL INFORMATION: Pain status-post fall. COMPARISON: None available. TECHNIQUE: Frontal, lateral and swimmer's views of the thoracic spine were obtained. FINDINGS: There is a mild to moderate T12 anterior wedge compression fracture, which is unchanged from 05/15/2020. Vertebral body heights are otherwise normal. Alignment is normal, and the disc spaces are well-maintained. No acute fracture or spondylolisthesis is seen. The posterior elements are intact. There are aortic atherosclerotic calcifications. IMPRESSION: 1. There is a stable mild to moderate T12 anterior wedge compression fracture. 2. No acute fracture or spondylolisthesis is seen. 3. No thoracic disc spaces are well-maintained.
--- NOTE | ~2022-05-23 | XR_ITS ---
EXAMINATION: XR HIP, RIGHT WITH AP PELVIS CLINICAL INFORMATION: Right hip pain status-post fall. COMPARISON: None available. TECHNIQUE: Two views of the right hip are submitted, together with a frontal view the pelvis. FINDINGS: Bones and soft tissues are normal. No fracture. Alignment is anatomic. Hip joint spaces are well-maintained. The sacroiliac joints are symmetric and well-maintained. Pubic symphysis is intact. There are atherosclerotic calcifications. XR/XR hip RT w PEL1V IMPRESSION: Normal right hip and pelvis radiographs.
== END 2022-05-23 14:59 | disposition home or self-care (01) ==
LOC: HO.XRAY 14:58
PROVIDERS: PCP Family Medicine; Visit Provider Registered Nurse
DX: M25.551 Pain in right hip (principal); R07.81 Pleurodynia; M54.6 Pain in thoracic spine; Z91.81 History of falling
CPT/HCPCS: 71101; 72070; 73502

== ENCOUNTER 2022-08-08 21:23 | Observation (INO) | payer OTHER, SELFPAY ==
--- NOTE | ~2022-08-08 | CT_ITS ---
EXAMINATION: CT ABDOMEN AND PELVIS WITHOUT CONTRAST CLINICAL INFORMATION: Right-sided pain COMPARISON: Thoracic spine films 05/23/2022 and CTA chest 03/12/2008 TECHNIQUE: Multidetector volumetric imaging was performed from the superior aspect of the liver through the pubic symphysis. Sagittal and coronal reformatted images were obtained on the technologist's workstation. This CT examination was performed using dose optimization techniques as appropriate, variously including the following: *Automated exposure control *Adjustment of mA and/or kV according to patient size (this includes techniques or standardized protocols for targeted exams where dose is matched to indication/reason for exam; i.e. extremities or head) *Use of iterative reconstruction technique DLP: 308 mGy-cm FINDINGS: LUNG BASES: Atelectasis is present at the lung bases. There is a comminuted subacute. Fracture involving the proximal 10th right rib at the costovertebral junction with associated pleural thickening with an area of lenticular pleural-based thickening measuring 1.8 x 3.0 x 2.1 cm. LIVER, GALLBLADDER, AND BILIARY TREE: The liver is normal in size, shape, and attenuation. No focal hepatic lesion or biliary ductal dilatation is present. The gallbladder is unremarkable with no evidence of radiopaque gallstones, gallbladder wall thickening, or obvious pericholecystic inflammatory changes. PANCREAS: Unremarkable. SPLEEN: Unremarkable. ADRENAL GLANDS: Unremarkable. KIDNEYS AND URETERS: The kidneys are normal in size, shape, and attenuation. No hydronephrosis, hydroureter, or calculi seen. No perinephric stranding. BLADDER: Unremarkable. GASTROINTESTINAL TRACT: There is mild dilatation of the distal ileum with fluid-filled loops of colon but no definite site of obstruction is seen The small and large bowel are unremarkable. The appendix is not seen with certainty but there is no evidence of appendicitis appendicitis. ABDOMINAL WALL: No significant hernia is appreciated. LYMPH NODES: No retroperitoneal lymphadenopathy. VASCULAR: Calcific atherosclerotic plaque present in the aorta and iliofemoral vessels without aneurysm. PELVIC VISCERA: The uterus and adnexa are unremarkable. OSSEOUS STRUCTURES: Comminuted fracture proximal fifth right rib and costal vertebral junction. There is a compression fracture involving the superior endplate of T12 with sclerosis. Degenerative changes are present at L5-S1. CT/CT abdomen pelvis wo IV con IMPRESSION: 1. Comminuted subacute fracture proximal fifth right rib with associated pleural thickening. 2. Compression fracture superior endplate T12. 3. Dilated distal small bowel loops without definite site of obstruction or transition. 4. Other incidental findings as described above. Fleischner guidelines were followed.
[2022-08-08 21:26] VITALS: BP 165/75; PULSE 105; O2SAT 94; BMI 19.2
[2022-08-08 21:33] VITALS: BP 172/85; PULSE 100; RESP 12; TEMP 36.9; O2SAT 95
--- NOTE | 2022-08-08 21:34 | ECG_ITS ---
Test Reason : CHEST PAIN Blood Pressure : / mmHG Vent. Rate : 095 BPM Atrial Rate : 095 BPM P-R Int : 106 ms QRS Dur : 126 ms QT Int : 382 ms P-R-T Axes : 052 050 037 degrees QTc Int : 480 ms Sinus rhythm with short [place] Right bundle branch block Abnormal ECG When compared with ECG of 12-MAR-2008 18:15, No significant change was found Referred By: Yovani Arshad Electronically Signed By:CYNTHIA NUNES MD
[2022-08-08 21:37] VITALS: BP 172/85; PULSE 97; RESP 18; TEMP 37.3; O2SAT 95
--- NOTE | 2022-08-08 21:47 | ED_ITS ---
HPI - Abdominal Pain General Chief Complaint: Abdominal Pain Stated Complaint: abd pain Time Seen by Provider: 08/08/22 21:47 Source: patient and family Mode of arrival: ambulatory Limitations: no limitations History of Present Illness HPI narrative: Patient diabetic comes here for and right upper quadrant pain with nausea vomiting and diarrhea started earlier today no fever no chills no urine symptoms no history of gallstone no history of similar pain in the past most she had bile in vomiting had 2 bowel movements last bowel movement was at 17:00 which was slightly loose and watery Related Data Home Medications Medication Instructions Recorded Confirmed amlodipine 5 mg tablet 5 mg PO QAM 02/12/20 04/13/21 aspirin 81 mg tablet,delayed 81 mg PO DAILY 02/12/20 04/13/21 release atorvastatin 40 mg tablet mg PO 02/12/20 04/13/21 blood sugar diagnostic #10 ea 02/12/20 04/13/21 lancets 33 gauge #100 ea 02/12/20 04/13/21 lisinopril 10 mg tablet 10 mg PO DAILY 02/12/20 04/13/21 metformin 500 mg tablet,extended 1,000 mg PO BEDTIME 02/12/20 04/13/21 release 24 hr nabumetone 500 mg tablet 500 mg PO BID 02/12/20 04/13/21 pioglitazone 15 mg tablet 15 mg PO DAILY 02/12/20 04/13/21 Previous Rx's Medication Instructions Recorded acetaminophen 500 mg tablet 500 mg PO Q6H PRN pain or fever 01/25/20 (Tylenol Extra Strength) #20 tabs cyclobenzaprine 5 mg tablet 5 mg PO Q8H PRN pain (scale score 01/25/20 7-10) 5 days #14 tabs lidocaine 5 % topical patch 1 patch topical DAILY PRN pain #30 01/25/20 (Lidoderm) ea naproxen 500 mg tablet 500 mg PO BID PRN pain 10 days #20 01/25/20 tabs cholecalciferol (vitamin D3) 125 125 mcg PO DAILY 30 days #30 caps 03/04/20 mcg (5,000 unit) capsule levothyroxine 137 mcg tablet 137 mcg PO DAILY 90 days #90 tabs 03/27/20 calcium carbonate 600 mg calcium 600 mg PO BID 90 days #180 tabs 05/01/20 (1,500 mg) tablet meloxicam 15 mg tablet 15 mg PO DAILY #30 tabs 03/01/21 pen needle,diabetic, disp unit 29 #100 ea 05/17/21 gauge x 1/2 , remover and disposal unit teriparatide 20 mcg/dose (600 20 mcg (0.08 mL) subcut DAILY #7.2 11/11/21 mcg/2.4 mL) subcutaneous pen mL injector (Forteo) Allergies Allergy/AdvReac Type Severity Reaction Status Date / Time No Known Allergies Allergy Mild NKA Verified 10/25/21 09:20 N.K.D.A. Allergy Unknown NKA Uncoded 10/25/21 09:20 Review of Systems Review of Systems Yes all other systems are reviewed and are negative FORMERLY [facility], [facility] Past Medical History Medical History Abnormal thyroid biopsy Diabetes HTN (hypertension) Hypothyroidism Non-toxic multinodular goiter Osteoporosis Vitamin D deficiency Surgical History No history of previous surgery Family History Family History Father Diabetes Mother Depression Social History Social History Alcohol intake: never Patient Tobacco Use Status: Never used Tobacco Smoked in Last 30 Days: No Use of substances other than those prescribed or required for medical reasons: No Advance Directives: No Advance Directives Information Provided: No Current occupational status: 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 Physical Exam ED Vital Signs: Vital Signs - 24 hr 08/08/22 21:33 08/08/22 21:37 08/08/22 23:57 Temperature 98.4 F 99.1 F 98.5 F Pulse Rate 100 97 100 Respiratory Rate 12 18 15 Blood Pressure 172/85 H 172/85 H 149/88 H Pulse Oximetry 95 95 92 Oxygen Delivery Method Room Air Room Air Room Air 08/09/22 00:20 Temperature Pulse Rate Respiratory Rate 14 Blood Pressure Pulse Oximetry Oxygen Delivery Method BMI result Body Mass Index 19.2 Appearance: Alert. Oriented X3. No acute distress. Eyes: No pallor or icterus ENT: Pharynx normal. Oral Mucosa moist Neck: Normal inspection. Neck supple. CVS: Normal heart rate and rhythm. Pulses normal. Respiratory: No respiratory distress. Equal air entry bilateral, no wheezing/rales/rhonchi Abdomen: Soft a mild tenderness right upper quadrant no rebound tenderness or guarding. Bowel sounds are present, no mass palpable, no CVA tenderness Skin: Skin warm and dry. Normal skin color. Normal skin turgor. Extremities: No lower extremity edema. No calf tenderness Neuro: Oriented X 3. No motor deficit. Medical Decision Making Medical Decision Making [facility] Narrative: Patient with dilated bowels without any obstruction NG-tube tried with increased gag reflex patient refused NG tube patient feeling better now with abdominal been getting better and does not have any significant nausea will hold NG tube for now admit for abdominal pain and gastroenteritis with? partial bowel obstruction Lab Data 08/08/22 21:54 08/08/22 21:54 Labs: Lab Results 08/08/22 08/08/22 08/08/22 Range/Units 21:54 21:54 21:54 WBC 13.8 H (4.8-10.8) X10*3/uL RBC 4.67 (4.20-5.50) X10*6/uL Hgb 13.5 (12.0-16.0) g/dl Hct 40.7 (37.0-47.0) % MCV 87.2 (80.0-98.0) fL MCH 28.9 (27.0-33.0) pg MCHC 33.2 (31.0-35.0) g/dl RDW 12.3 (11.0-16.0) % Plt Count 258 (160-400) X10*3/uL MPV 9.6 (9.4-12.3) fL Absolute Nucleated RBC 0.000 (0.0-0.012) X10*3/uL Nucleated RBC % (auto) 0.0 (0.0-0.2) /100WBC Sodium 143 (135-145) mmol/L Potassium 4.1 (3.3-5.1) mmol/L Chloride 105 (96-108) mmol/L Carbon Dioxide 27 (22-29) mmol/L Anion Gap 15 (12-20) BUN 9 (9-16) mg/dL Creatinine 0.93 (0.5-1.4) mg/dL Estim Creat Clear Calc 35.0 Estimated GFR 58 Random Glucose 151 H (60-115) mg/dL Lactic Acid 1.7 (0.5-2.0) mmol/L Calcium 10.3 H D (8.4-10.2) mg/dL Total Bilirubin 0.6 (0.0-1.0) mg/dL AST 16 (5-31) U/L ALT 8 (0-31) U/L Alkaline Phosphatase 91 (39-117) U/L Total Protein 7.6 (6.5-8.0) g/dL Albumin 4.8 (3.5-5.0) g/dL Lipase 30 (8-78) U/L Medications Administered Discontinued Medications Generic Name Dose Route Start Last Admin Trade Name Freq PRN Reason Stop Dose Admin Sodium Chloride 1,000 mls @ 999 mls/hr 08/08/22 22:04 08/08/22 23:45 Ns IV 08/08/22 23:04 Infused .Q1H1M ONE Infusion Morphine Sulfate 2 mg 08/09/22 00:00 08/09/22 00:20 Morphine Sulfate 2 Mg/Ml Cartridge IVPUSH 08/09/22 00:01 2 mg ONCE ONE Administration Protocol Ondansetron HCl 4 mg 08/08/22 22:04 08/08/22 22:37 Ondansetron Hcl 4 Mg/2 Ml Vial IVPUSH 08/08/22 22:05 4 mg ONCE ONE Administration Ondansetron HCl 4 mg 08/09/22 00:32 08/09/22 00:43 Ondansetron Hcl 4 Mg/2 Ml Vial IVPUSH 08/09/22 00:33 4 mg ONCE ONE Administration Discharge Plan Discharge Clinical Impression: Partial intestinal obstruction Patient Disposition: Admitted As Inpatient
[2022-08-08 22:10] LABS: Hematocrit 40.7 % (37.0-47.0); Hemoglobin 13.5 g/dl (12.0-16.0); Mean Corpuscular HGB Conc 33.2 g/dl (31.0-35.0); Mean Corpuscular Hemoglobin 28.9 pg (27.0-33.0); Mean Corpuscular Volume 87.2 fL (80.0-98.0); Mean Platelet Volume 9.6 fL (9.4-12.3); Platelet Count 258 X10*3/uL (160-400); Red Blood Count 4.67 X10*6/uL (4.20-5.50); Red Cell Distribution Width 12.3 % (11.0-16.0); White Blood Count 13.8 X10*3/uL (4.8-10.8)
[2022-08-08 22:23] LABS: Lactic Acid 1.7 mmol/L (0.5-2.0)
[2022-08-08 22:30] LABS: Alanine Aminotransferase 8 U/L (0-31); Albumin Level 4.8 g/dL (3.5-5.0); Alkaline Phosphatase 91 U/L (39-117); Anion Gap 15 (12-20); Aspartate Amino Transferase 16 U/L (5-31); Bilirubin Total 0.6 mg/dL (0.0-1.0); Blood Urea Nitrogen 9 mg/dL (9-16); Calcium 10.3 mg/dL (8.4-10.2); Carbon Dioxide 27 mmol/L (22-29); Chloride 105 mmol/L (96-108); Estimated Glomerular Filt Rate 58; Glucose Random 151 mg/dL (60-115); Lipase 30 U/L (8-78); Potassium 4.1 mmol/L (3.3-5.1); Sodium 143 mmol/L (135-145); Total Protein 7.6 g/dL (6.5-8.0)
[2022-08-08] MEDS: 0.9 % Sodium Chloride 1,000 ML 999 ML IV (22:37)
[2022-08-08] MEDS: ondansetron HCL 4 MG/2 ML VIAL IVPUSH (22:37)
--- NOTE | 2022-08-08 22:37 | PC.NURSE ---
administered 4mg zofran IV push for nausea per MAR
--- NOTE | 2022-08-08 23:46 | PC.NURSE ---
pt continues to experience nausea provider notified
[2022-08-08 23:57] VITALS: BP 149/88; PULSE 100; RESP 15; TEMP 36.9; O2SAT 92
[2022-08-09] VITALS (8 sets, daily range): BP systolic 117–169; BP diastolic 65–84; PULSE 68–100; RESP 12–20; TEMP 36.3–37.1; O2SAT 90–94
[2022-08-09] MEDS: Morphine Sulfate 2 MG/ML CARTRIDGE IVPUSH (00:20)
--- NOTE | 2022-08-09 00:20 | PC.NURSE ---
administered 2mg morphine IV push for abd pain per MAR
[2022-08-09] MEDS: ondansetron HCL 4 MG/2 ML VIAL IVPUSH (00:43)
--- NOTE | 2022-08-09 00:43 | PC.NURSE ---
administered zofran 4mg IV push for nausea per MAR
[2022-08-09] MEDS: Lactated Ringers 1,000 ML 80 ML IVCONT ×2 (02:11→15:06)
--- NOTE | 2022-08-09 02:24 | PC.NURSE ---
med rec complete
--- NOTE | 2022-08-09 02:35 | PC.NURSE ---
N2N report given to KEVON Shields. Pt to room 348 (S3)
--- NOTE | 2022-08-09 02:36 | PC.NURSE ---
pt aox4 no apparent distress, resting quietly daughter remains at bedside 1L LR currently running @ 80mLs
[2022-08-09 04:34] LABS: Appearance Urine Clear; Color Urine Yellow; Glucose Urine UA Negative (Negative); Leukocyte Esterase Urine Small (1+) (Negative); Nitrite Urine Negative (Negative); PH >= 9.0 (5.0-9.0); UMIC TRIGGER UACC YES; Urine Blood Negative (Negative); Urine Ketones Trace mg/dL (Negative); Urine Protein Trace mg/dL (Neg-Trace)
[2022-08-09 04:45] LABS: Bacteria Urine None Seen (None Seen); Hyaline Casts Urine 0-2 /LPF (0-2); Squamous Epithelial Cell Urine 0-2 /HPF (0-2); UACC Culture Trigger YES; WBC Urine 0-5 /HPF (0-5)
[2022-08-09 05:41] LABS: MANUAL DIFF FLAG NO
[2022-08-09 05:43] LABS: Basophils Absolute Auto 0.1 X10*3/uL (0.0-0.2); Basophils Percent Auto 0.6 % (0-2); Eosinophils Percent Auto 0.1 % (0-4); Hematocrit 43.2 % (37.0-47.0); Imm Gran Abs Auto 0.02 X10*3/uL (0.00-0.03); Imm Gran Pct Auto 0.2 % (0.0-0.4); Lymphocytes Absolute Auto 1.6 X10*3/uL (1.2-4.9); Lymphocytes Percent Auto 14.8 % (20-40); Mean Corpuscular HGB Conc 32.4 g/dl (31.0-35.0); Mean Corpuscular Hemoglobin 28.6 pg (27.0-33.0); Mean Corpuscular Volume 88.2 fL (80.0-98.0); Mean Platelet Volume 9.5 fL (9.4-12.3); Monocytes Absolute Auto 0.8 X10*3/uL (0.1-1.2); Monocytes Percent Auto 7.4 % (2-11); Neutrophils Absolute Auto 8.2 x10*3/uL (2.0-8.3); Neutrophils Percent Auto 76.9 % (45-73); Platelet Count 221 X10*3/uL (160-400); Red Cell Distribution Width 12.3 % (11.0-16.0); White Blood Count 10.6 X10*3/uL (4.8-10.8)
[2022-08-09 06:08] LABS: Anion Gap 13 (12-20); Blood Urea Nitrogen 8 mg/dL (9-16); Calcium 9.1 mg/dL (8.4-10.2); Carbon Dioxide 26 mmol/L (22-29); Chloride 109 mmol/L (96-108); Creatinine Clr Calc Pharmacy 41.2; Estimated Glomerular Filt Rate > 60; Glucose Random 147 mg/dL (60-115); Potassium 4.6 mmol/L (3.3-5.1); Sodium 143 mmol/L (135-145)
--- NOTE | 2022-08-09 06:23 | PM.IMHP ---
History of Present Illness Date of Service: 08/09/22 Chief Complaint: abd pain 82-year-old female with past medical history of diabetes, hypertension, hypothyroidism, presents the hospital with complaints of abdominal pain. patient is [place]ian-speaking only, history is mostly obtain Patient daughter is at bedside and gives most of the history. She reports that she got home from work and her mother started complaining of abdominal pain. Patient reports the pain is localized to the epigastric region. Nonradiating, constant, about 6/10, associated with nausea vomiting, and 1 episode of nonbloody diarrhea denies any fever, no chills no chest pain, shortness of breath, no urinary symptoms and no lower extremity edema. On arrival to the ED patient's vitals stable with no significant abnormality Labs are significant for normal lipase, normal WBC, otherwise unremarkable, UA is slightly positive for leukocyte Estrace but patient is asymptomatic Abdominal pelvic CT shows a 5th rib fracture, T12 compression fracture, and dilated distal small bowel loops without definite site of obstruction or transition, S patient continues to have nausea vomiting, on NG tube was placed in the ED, patient will be admitted for further monitoring Review of Systems Review of Systems: Yes all other systems are reviewed and are negative [facility] Medical History Abnormal thyroid biopsy Diabetes HTN (hypertension) Hypothyroidism Non-toxic multinodular goiter Osteoporosis Vitamin D deficiency Family History Father Diabetes Mother Depression Surgical History No history of previous surgery Social History Alcohol intake: never Patient Tobacco Use Status: Never used Tobacco Smoked in Last 30 Days: No Use of substances other than those prescribed or required for medical reasons: No Advance Directives: No Advance Directives Information Provided: No Nutrition Risks: Acute nausea or vomiting x1 week Current occupational status: 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 Meds Allergies Allergy/AdvReac Type Severity Reaction Status Date / Time No Known Allergies Allergy Mild NKA Verified 08/09/22 02:17 Active Medications: Current Medications Acetaminophen (Acetaminophen 325 Mg Tablet) 650 mg PO Q6H PRN PRN Reason: Pain, Mild (Pain Scale 1-3) Glucose (Glucose Gel 15 Gm Gel..Gram.) 15 gm PO Q15M PRN; Protocol PRN Reason: per Hypoglycemia Standing Ord. Lactated Ringer's (Lr) 1,000 mls @ 80 mls/hr IVCONT .[id number] [facility] Last Admin: 08/09/22 02:11 Dose: 80 mls/hr Dextrose (D10) 250 mls @ 750 mls/hr IV Q15M PRN; Protocol PRN Reason: per Hypoglycemia Standing Ord. Insulin Human Lispro (Insulin Lispro 100 Unit/Ml 3 Ml Vial) 0 unit SUBCUT QIDACHS [facility]; Protocol Prochlorperazine Edisylate (Prochlorperazine Edisylate 10 Mg/2 Ml Vial) 5 mg IVPUSH Q4H PRN PRN Reason: Nausea and Vomiting Sodium Chloride (0.9 % Sodium Chloride Flush 3 Ml Syringe) [facility] Medications Medication Instructions Recorded Confirmed Last Taken Type amlodipine 5 mg tablet 5 mg PO DAILY 08/09/22 08/09/22 Unknown History aspirin 81 mg tablet,delayed 81 mg PO DAILY 08/09/22 08/09/22 Unknown History release blood sugar diagnostic (FreeStyle 08/09/22 08/09/22 Unknown History Lite Strips) calcium carbonate 600 mg calcium 600 mg PO BID 08/09/22 08/09/22 Unknown History (1,500 mg) tablet cholecalciferol (vitamin D3) 50 50 mcg PO QAM 08/09/22 08/09/22 Unknown History mcg (2,000 unit) capsule (Vitamin D3) doxepin 10 mg capsule 10 mg PO BEDTIME 08/09/22 08/09/22 Unknown History ibuprofen 600 mg tablet (IBU) 600 mg PO NEEDED 08/09/22 08/09/22 Unknown History lancets 33 gauge (TRUEplus Lancets) 08/09/22 08/09/22 Unknown History levothyroxine 125 mcg tablet 125 mcg PO QAM 08/09/22 08/09/22 Unknown History lisinopril 10 mg tablet 10 mg PO QAM 08/09/22 08/09/22 Unknown History metformin 500 mg tablet,extended 1,000 mg PO DIRECTED 08/09/22 08/09/22 Unknown History release 24 hr pen needle, diabetic 29 gauge x 08/09/22 08/09/22 Unknown History 1/2 (UltiCare Pen Needle) rosuvastatin 40 mg tablet 40 mg PO BEDTIME 08/09/22 08/09/22 Unknown History teriparatide 20 mcg/dose (600 20 mcg subcut 1XD 08/09/22 08/09/22 Unknown History mcg/2.4 mL) subcutaneous pen injector (Forteo) zolpidem 5 mg tablet 5 mg PO BEDTIME PRN Insomnia 08/09/22 08/09/22 Unknown History Physical Exam Vital Signs and Narrative: Vital Signs: Last Vital Signs Temp 97.8 F 08/09/22 03:12 Pulse 82 08/09/22 03:12 Resp 16 08/09/22 03:12 BP 148/72 H 08/09/22 03:12 Pulse Ox 93 08/09/22 03:12 O2 Del Method Room Air 08/09/22 03:12 BMI result Body Mass Index 19.2 Const: General: cooperative and no acute distress Orientation/consciousness: patient oriented x3 Eyes: General: appearance normal, both eyes and all related structures Pupils: Equal, round and reactive pupils present Resp: Effort & Inspection: normal respiratory effort Auscultation: clear to auscultation bilaterally Cardio: Rate: regular rate Rhythm: regular rhythm GI: Other: abdomen is soft, when palpated diffusely produces grimacing her face, no rebound or guarding Palpation (GI): Soft to palpation Auscultation: normal bowel sounds Skin: General skin exam: no rashes or lesions noted Neuro: General: patient oriented x3 Cranial nerves: Yes Equal, round and reactive pupils present Cognition (Neuro): normal cognition Extrem: General: Yes normal to inspection and Yes no pedal edema Results Labs 08/09/22 05:29 08/09/22 05:29 Labs: Laboratory Results - last 24 hr 08/08/22 08/08/22 08/08/22 21:54 21:54 21:54 MCV 87.2 MCH 28.9 MCHC 33.2 RDW 12.3 Plt Count 258 MPV 9.6 Immature Gran % (Auto) Neut % (Auto) Lymph % (Auto) [place] % (Auto) Eos % (Auto) Baso % (Auto) Lymph # (Auto) [place] # (Auto) Eos # (Auto) Baso # (Auto) Abs Immat Gran (auto) Absolute Neuts (auto) Absolute Nucleated RBC 0.000 Nucleated RBC % (auto) 0.0 Anion Gap 15 Estim Creat Clear Calc 35.0 Estimated GFR 58 Random Glucose 151 H Lactic Acid 1.7 Calcium 10.3 H D Total Bilirubin 0.6 AST 16 ALT 8 Alkaline Phosphatase 91 Total Protein 7.6 Albumin 4.8 Lipase 30 Urine Color Urine Appearance Urine pH Ur Specific [place] Urine Protein Urine Glucose (UA) Urine Ketones Urine Blood Urine Nitrite Ur Leukocyte Esterase Urine RBC Urine WBC Ur Squamous Epith Cells Urine Bacteria Hyaline Casts 08/09/22 08/09/22 08/09/22 05:29 05:29 Unknown MCV 88.2 MCH 28.6 MCHC 32.4 RDW 12.3 Plt Count 221 MPV 9.5 Immature Gran % (Auto) 0.2 Neut % (Auto) 76.9 H Lymph % (Auto) 14.8 L [place] % (Auto) 7.4 Eos % (Auto) 0.1 Baso % (Auto) 0.6 Lymph # (Auto) 1.6 [place] # (Auto) 0.8 Eos # (Auto) 0.0 Baso # (Auto) 0.1 Abs Immat Gran (auto) 0.02 Absolute Neuts (auto) 8.2 Absolute Nucleated RBC 0.000 Nucleated RBC % (auto) 0.0 Anion Gap 13 Estim Creat Clear Calc 41.2 Estimated GFR > 60 Random Glucose 147 H Lactic Acid Calcium 9.1 D Total Bilirubin AST ALT Alkaline Phosphatase Total Protein Albumin Lipase Urine Color Yellow Urine Appearance Clear Urine pH >= 9.0 Ur Specific [place] 1.020 Urine Protein Trace Urine Glucose (UA) Negative Urine Ketones Trace Urine Blood Negative Urine Nitrite Negative Ur Leukocyte Esterase Small (1+) H Urine RBC 6-10 H Urine WBC 0-5 Ur Squamous Epith Cells 0-2 Urine Bacteria None Seen Hyaline Casts 0-2 Imaging Radiologist's Impressions: Impressions Abdomen/Pelvis CT 08/08/22 22:15 IMPRESSION: 1. Comminuted subacute fracture proximal fifth right rib with associated pleural thickening. 2. Compression fracture superior endplate T12. 3. Dilated distal small bowel loops without definite site of obstruction or transition. 4. Other incidental findings as described above. Fleischner guidelines were followed. Assessment and Plan (1) Abdominal pain: Status: Acute (2) Intractable nausea and vomiting: Status: Acute Plan 82-year-old female with past medical history of diabetes, hypertension presents the hospital with abdominal pain nausea vomiting # abdominal pain - possibly secondary to gastritis versus partial small-bowel obstruction - abdominal CT shows dilated loops with no evidence of transition point - had 1 bowel movement prior to coming to the hospital - patient has intractable nausea vomiting, will place NG tube - lipase negative - monitor symptoms # intractable nausea vomiting - likely secondary to to above - antiemetics - IV fluids # diabetes - low-dose sliding scale insulin - diabetic diet # hypertension - stable - continue antihypertensives # hypothyroidism - continue levothyroxine DVT prophylaxis: Early ambulation Time Spent With Patient Time: Total time managing care of this patient today ____ minutes. Quality Stroke Does the patient have a stroke diagnosis?: No VTE Prior VTE?: No VTE Risk Level:: Medical - low VTE Device Contraindication: Treatment Not Indicated VTE Drug Contraindication: Treatment Not Indicated
--- NOTE | 2022-08-09 07:05 | PHA.MEDREC ---
Pharmacy Consult ? Medication Reconciliation Pharmacy has reviewed the medication reconciliation.
[2022-08-09 07:29] LABS: Glucose, Whole Blood 135 mg/dL (60-115)
[2022-08-09] MEDS: Prochlorperazine Edisylate 10 MG/2 ML VIAL 5 MG IVPUSH (08:32)
--- NOTE | 2022-08-09 11:14 | MHC.CM.PN ---
PATIENT LIVES WITH SPOUSE DAUGHTER/HCP LIVES UPSTAIRS. COPY OF HCP REQUESTED. NO DMR OR VNA THERE ARE RN AND SW VISITS EVERY 6 MONTHS FOR ASSESSMENT OF ANY NEEDS PCP IS ADONIS MATA UPDATE MADE IN [facility] QUICK TASK GARRETT 08/09 IN CHART
[2022-08-09 11:16] LABS: Glucose, Whole Blood 119 mg/dL (60-115)
--- NOTE | 2022-08-09 11:50 | P.CONGS_ITS ---
History of Present Illness Consult details Consult date: 08/09/22 Narrative: 82F referred for question of small bowel obstruction. According to her daughter Marlene, the patient has a history of recurent vomitting for many years. They were told that this was secondary to her thyroid issues. She had vomitting last night and complained of a transiet episode of right lower quadrant pain, so she was brought to the ED. She has had no further episodes of vomitting since last night. She denies any abdominal pain. She had BMs last night and passes flatus. Review of Systems Constitutional: Constitutional: Denies chills and Denies fever(s) Cardiovascular: Cardiovascular: Denies chest pain, Denies dyspnea and Denies dyspnea on exertion Respiratory: Respiratory: Denies cough, Denies dyspnea and Denies dyspnea on exertion Gastrointestinal: Gastrointestinal: Denies hematochezia, Denies change in bowel habits and Reports vomiting Genitourinary: Genitourinary: Denies hematuria Musculoskeletal: Musculoskeletal: Reports back pain and Reports limited range of motion Neurologic: Denies focal weakness and Denies convulsions Psychiatric: Psychiatric: Denies depression and Denies mood swings PMFSH Past Medical History Medical History Abnormal thyroid biopsy Diabetes HTN (hypertension) Hypothyroidism Non-toxic multinodular goiter Osteoporosis Vitamin D deficiency Family History Family History Father Diabetes Mother Depression Surgical History Surgical History No history of previous surgery Social History Social History Alcohol intake: never Patient Tobacco Use Status: Never used Tobacco service: No Current occupational status: 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 Meds Allergies Allergy/AdvReac Type Severity Reaction Status Date / Time No Known Allergies Allergy Mild NKA Verified 08/09/22 02:17 Active Medications: Current Medications Acetaminophen (Acetaminophen 325 Mg Tablet) 650 mg PO Q6H PRN PRN Reason: Pain, Mild (Pain Scale 1-3) Amlodipine Besylate (Amlodipine Besylate 5 Mg Tablet) 5 mg PO DAILY [facility]; Protocol Last Admin: 08/09/22 09:19 Dose: Not Given Aspirin (Aspirin Enteric Coated 81 Mg Tablet.) 81 mg PO DAILY [facility] Last Admin: 08/09/22 09:20 Dose: Not Given Doxepin HCl (Doxepin Hcl 10 Mg Capsule) 10 mg PO BEDTIME [facility] Glucose (Glucose Gel 15 Gm Gel..Gram.) 15 gm PO Q15M PRN; Protocol PRN Reason: per Hypoglycemia Standing Ord. Lactated Ringer's (Lr) 1,000 mls @ 80 mls/hr IVCONT .[id number] [facility] Last Admin: 08/09/22 02:11 Dose: 80 mls/hr Dextrose (D10) 250 mls @ 750 mls/hr IV Q15M PRN; Protocol PRN Reason: per Hypoglycemia Standing Ord. Insulin Human Lispro (Insulin Lispro 100 Unit/Ml 3 Ml Vial) 0 unit SUBCUT QIDACHS [facility]; Protocol Last Admin: 08/09/22 11:21 Dose: Not Given Levothyroxine Sodium (Levothyroxine Sodium 125 Mcg Tablet) 125 mcg PO DAILY@0600 [facility] Last Admin: 08/09/22 09:19 Dose: Not Given Lisinopril (Lisinopril 10 Mg Tablet) 10 mg PO DAILY [facility]; Protocol Last Admin: 08/09/22 09:20 Dose: Not Given Metformin HCl (Metformin Hcl Er 500 Mg Tab.Er.24h) 1,000 mg PO BID [facility] Last Admin: 08/09/22 09:20 Dose: Not Given Non-Formulary Medication (Teriparatide [Forteo]) 20 mcg SUBCUT 1XD [facility] Prochlorperazine Edisylate (Prochlorperazine Edisylate 10 Mg/2 Ml Vial) 5 mg IVPUSH Q4H PRN PRN Reason: Nausea and Vomiting Last Admin: 08/09/22 08:32 Dose: 5 mg Sodium Chloride (0.9 % Sodium Chloride Flush 3 Ml Syringe) 3 ml IVFLUSH QSHIFT [facility] Last Admin: 08/09/22 07:06 Dose: Not Given Vitamin D (Cholecalciferol (Vitamin D3) 25 Mcg Tablet) 50 mcg PO DAILY [facility] Last Admin: 08/09/22 09:20 Dose: Not Given Zolpidem Tartrate (Zolpidem Tartrate 5 Mg Tablet) 5 mg PO BEDTIME PRN PRN Reason: Insomnia Home Medications Medication Instructions Recorded Confirmed Last Taken Type amlodipine 5 mg tablet 5 mg PO DAILY 08/09/22 08/09/22 Unknown History aspirin 81 mg tablet,delayed 81 mg PO DAILY 08/09/22 08/09/22 Unknown History release blood sugar diagnostic (FreeStyle 08/09/22 08/09/22 Unknown History Lite Strips) calcium carbonate 600 mg calcium 600 mg PO BID 08/09/22 08/09/22 Unknown History (1,500 mg) tablet cholecalciferol (vitamin D3) 50 50 mcg PO QAM 08/09/22 08/09/22 Unknown History mcg (2,000 unit) capsule (Vitamin D3) doxepin 10 mg capsule 10 mg PO BEDTIME 08/09/22 08/09/22 Unknown History ibuprofen 600 mg tablet (IBU) 600 mg PO NEEDED 08/09/22 08/09/22 Unknown History lancets 33 gauge (TRUEplus Lancets) 08/09/22 08/09/22 Unknown History levothyroxine 125 mcg tablet 125 mcg PO QAM 08/09/22 08/09/22 Unknown History lisinopril 10 mg tablet 10 mg PO QAM 08/09/22 08/09/22 Unknown History metformin 500 mg tablet,extended 1,000 mg PO BID 08/09/22 08/09/22 Unknown History release 24 hr rosuvastatin 40 mg tablet 40 mg PO BEDTIME 08/09/22 08/09/22 Unknown History teriparatide 20 mcg/dose (600 20 mcg subcut 1XD 08/09/22 08/09/22 Unknown History mcg/2.4 mL) subcutaneous pen injector (Forteo) zolpidem 5 mg tablet 5 mg PO BEDTIME PRN Insomnia 08/09/22 08/09/22 Unknown History Physical Exam Vital Signs: Vital Signs: Last Vital Signs Temp 97.3 F 08/09/22 07:33 Pulse 68 08/09/22 07:33 Resp 18 08/09/22 07:33 BP 117/65 08/09/22 07:33 Pulse Ox 94 08/09/22 07:33 O2 Del Method Room Air 08/09/22 07:33 BMI result Body Mass Index 19.2 Const: General: comfortable and no acute distress Orientation/consciousne ss: patient oriented x3 Neck: Neck: Yes no lymphadenopathy Resp: Auscultation: clear to auscultation bilaterally Cardio: Rhythm: regular rhythm GI: Palpation (GI): Soft to palpation, nontender and no guarding Neuro: General: patient oriented x3 Results Labs 08/09/22 05:29 08/09/22 05:29 Labs: Abnormal lab results 08/08/22 08/08/22 08/09/22 Range/Units 21:54 21:54 05:29 WBC 13.8 H (4.8-10.8) X10*3/uL Neut % (Auto) 76.9 H (45-73) % Lymph % (Auto) 14.8 L (20-40) % Chloride (96-108) mmol/L BUN (9-16) mg/dL POC Glucose (60-115) mg/dL Random Glucose 151 H (60-115) mg/dL Calcium 10.3 H D (8.4-10.2) mg/dL Ur Leukocyte Esterase (Negative) Urine RBC (0-2) /HPF 08/09/22 08/09/22 08/09/22 Range/Units 05:29 07:25 11:07 WBC (4.8-10.8) X10*3/uL Neut % (Auto) (45-73) % Lymph % (Auto) (20-40) % Chloride 109 H (96-108) mmol/L BUN 8 L (9-16) mg/dL POC Glucose 135 H 119 H (60-115) mg/dL Random Glucose 147 H (60-115) mg/dL Calcium (8.4-10.2) mg/dL Ur Leukocyte Esterase (Negative) Urine RBC (0-2) /HPF 08/09/22 Range/Units Unknown WBC (4.8-10.8) X10*3/uL Neut % (Auto) (45-73) % Lymph % (Auto) (20-40) % Chloride (96-108) mmol/L BUN (9-16) mg/dL POC Glucose (60-115) mg/dL Random Glucose (60-115) mg/dL Calcium (8.4-10.2) mg/dL Ur Leukocyte Esterase Small (1+) H (Negative) Urine RBC 6-10 H (0-2) /HPF Short CBC 08/08/22 08/09/22 Range/Units 21:54 05:29 WBC 13.8 H 10.6 (4.8-10.8) X10*3/uL Hgb 13.5 14.0 (12.0-16.0) g/dl Hct 40.7 43.2 (37.0-47.0) % Plt Count 258 221 (160-400) X10*3/uL BMP 08/08/22 08/09/22 21:54 05:29 Sodium 143 143 Potassium 4.1 4.6 Chloride 105 109 H Carbon Dioxide 27 26 BUN 9 8 L Creatinine 0.93 0.79 Calcium 10.3 H D 9.1 D Liver Function 08/08/22 Range/Units 21:54 Total Bilirubin 0.6 (0.0-1.0) mg/dL AST 16 (5-31) U/L ALT 8 (0-31) U/L Alkaline Phosphatase 91 (39-117) U/L Albumin 4.8 (3.5-5.0) g/dL Urine 08/09/22 Range/Units Unknown Urine Color Yellow Urine Appearance Clear Urine pH >= 9.0 (5.0-9.0) Ur Specific [place] 1.020 (1.005-1.025) Urine Protein Trace (Neg-Trace) mg/dL Urine Glucose (UA) Negative (Negative) mg/dL All other labs normal. Laboratory Results WBC 10.6 X10*3/uL (4.8-10.8) 08/09/22 05:29 RBC 4.90 X10*6/uL (4.20-5.50) 08/09/22 05:29 Hgb 14.0 g/dl (12.0-16.0) 08/09/22 05:29 Hct 43.2 % (37.0-47.0) 08/09/22 05:29 MCV 88.2 fL (80.0-98.0) 08/09/22 05:29 MCH 28.6 pg (27.0-33.0) 08/09/22 05:29 MCHC 32.4 g/dl (31.0-35.0) 08/09/22 05:29 RDW 12.3 % (11.0-16.0) 08/09/22 05:29 Plt Count 221 X10*3/uL (160-400) 08/09/22 05:29 MPV 9.5 fL (9.4-12.3) 08/09/22 05:29 Immature Gran % (Auto) 0.2 % (0.0-0.4) 08/09/22 05:29 Neut % (Auto) 76.9 % (45-73) H 08/09/22 05:29 Lymph % (Auto) 14.8 % (20-40) L 08/09/22 05:29 [place] % (Auto) 7.4 % (2-11) 08/09/22 05:29 Eos % (Auto) 0.1 % (0-4) 08/09/22 05:29 Baso % (Auto) 0.6 % (0-2) 08/09/22 05:29 Lymph # (Auto) 1.6 X10*3/uL (1.2-4.9) 08/09/22 05:29 [place] # (Auto) 0.8 X10*3/uL (0.1-1.2) 08/09/22 05:29 Eos # (Auto) 0.0 X10*3/uL (0.0-0.4) 08/09/22 05:29 Baso # (Auto) 0.1 X10*3/uL (0.0-0.2) 08/09/22 05:29 Abs Immat Gran (auto) 0.02 X10*3/uL (0.00-0.03) 08/09/22 05:29 Absolute Neuts (auto) 8.2 x10*3/uL (2.0-8.3) 08/09/22 05:29 Absolute Nucleated RBC 0.000 X10*3/uL (0.0-0.012) 08/09/22 05:29 Nucleated RBC % (auto) 0.0 /100WBC (0.0-0.2) 08/09/22 05:29 Sodium 143 mmol/L (135-145) 08/09/22 05:29 Potassium 4.6 mmol/L (3.3-5.1) 08/09/22 05:29 Chloride 109 mmol/L (96-108) H 08/09/22 05:29 Carbon Dioxide 26 mmol/L (22-29) 08/09/22 05:29 Anion Gap 13 (12-20) 08/09/22 05:29 BUN 8 mg/dL (9-16) L 08/09/22 05:29 Creatinine 0.79 mg/dL (0.5-1.4) 08/09/22 05:29 Estim Creat Clear Calc 41.2 08/09/22 05:29 Estimated GFR > 60 08/09/22 05:29 POC Glucose 119 mg/dL (60-115) H 08/09/22 11:07 Random Glucose 147 mg/dL (60-115) H 08/09/22 05:29 Lactic Acid 1.7 mmol/L (0.5-2.0) 08/08/22 21:54 Calcium 9.1 mg/dL (8.4-10.2) D 08/09/22 05:29 Total Bilirubin 0.6 mg/dL (0.0-1.0) 08/08/22 21:54 AST 16 U/L (5-31) 08/08/22 21:54 ALT 8 U/L (0-31) 08/08/22 21:54 Alkaline Phosphatase 91 U/L (39-117) 08/08/22 21:54 Total Protein 7.6 g/dL (6.5-8.0) 08/08/22 21:54 Albumin 4.8 g/dL (3.5-5.0) 08/08/22 21:54 Lipase 30 U/L (8-78) 08/08/22 21:54 Urine Color Yellow 08/09/22 Unknown Urine Appearance Clear 08/09/22 Unknown Urine pH >= 9.0 (5.0-9.0) 08/09/22 Unknown Ur Specific [place] 1.020 (1.005-1.025) 08/09/22 Unknown Urine Protein Trace mg/dL (Neg-Trace) 08/09/22 Unknown Urine Glucose (UA) Negative mg/dL (Negative) 08/09/22 Unknown Urine Ketones Trace mg/dL (Negative) 08/09/22 Unknown Urine Blood Negative (Negative) 08/09/22 Unknown Urine Nitrite Negative (Negative) 08/09/22 Unknown Ur Leukocyte Esterase Small (1+) (Negative) H 08/09/22 Unknown Urine RBC 6-10 /HPF (0-2) H 08/09/22 Unknown Urine WBC 0-5 /HPF (0-5) 08/09/22 Unknown Ur Squamous Epith Cells 0-2 /HPF (0-2) 08/09/22 Unknown Urine Bacteria None Seen (None Seen) 08/09/22 Unknown Hyaline Casts 0-2 /LPF (0-2) 08/09/22 Unknown Impressions Abdomen/Pelvis CT 08/08/22 22:15 IMPRESSION: 1. Comminuted subacute fracture proximal fifth right rib with associated pleural thickening. 2. Compression fracture superior endplate T12. 3. Dilated distal small bowel loops without definite site of obstruction or transition. 4. Other incidental findings as described above. Fleischner guidelines were followed. Assessment and Plan (1) Intractable nausea and vomiting: Status: Acute She has a known history of vomitting for years. According to her daughter, this is not unusual for her.I have [facility] there is some small bowel dilatation, there is no identifiable transition point. There is air distally. She continues to have BMs and flatus. Her abdl exam is benign. She is clinically not obstructed. Her vomitting is likely secondary to a physiologic/functional etiology. She can restart cler liquids and this may be advanced as tolerated. It may be worthwhile to consult GI for her long history of vomitting. Time Spent With Patient Time: Total time managing care of this patient today ____ minutes. Procedures Date of Service Date of Service: 08/15/22
--- NOTE | 2022-08-09 14:04 | PM.EVENT ---
Event Note Date of Service: 08/09/22 Event Note: Patient seen and examined by hospitalist team this morning patient seen and examined again Nausea and abdominal pain seems to be improving Physical exam: Unchanged from H&P Assessment plan coordinated in H&P note: abdominal pain-? possibly secondary to gastritis versus partial small-bowel obstruction ?CT shows dilated loops with no evidence of transition point bowel rest ,antiemetics, clear liquid diet surgeryeval noted -added clear liquid Time Spent With Patient Time: Total time managing care of this patient today ____ minutes.
[2022-08-09 16:08] LABS: Glucose, Whole Blood 122 mg/dL (60-115)
[2022-08-09 20:28] LABS: Glucose, Whole Blood 135 mg/dL (60-115)
[2022-08-09] MEDS: Doxepin HCl 10 MG CAPSULE PO (21:51)
[2022-08-09] MEDS: metFORMIN HCl ER 500 MG TAB.ER.24H 1000 MG PO (21:51)
[2022-08-10] MEDS: Lactated Ringers 1,000 ML 80 ML IVCONT (02:22)
[2022-08-10 03:43] VITALS: BP 154/72; PULSE 116; RESP 16; TEMP 36.8; O2SAT 92
[2022-08-10] MEDS: Levothyroxine Sodium 125 MCG TABLET PO (05:37)
[2022-08-10 07:30] VITALS: BP 145/80; PULSE 108; RESP 16; TEMP 37.4; O2SAT 92
[2022-08-10 07:31] LABS: Glucose, Whole Blood 126 mg/dL (60-115)
[2022-08-10] MEDS: Cholecalciferol (Vitamin D3) 25 MCG TABLET 50 MCG PO (07:46)
[2022-08-10] MEDS: Aspirin Enteric Coated 81 MG TABLET.DR PO (07:46)
[2022-08-10] MEDS: metFORMIN HCl ER 500 MG TAB.ER.24H 1000 MG PO (07:46)
[2022-08-10] MEDS: lisinopriL 10 MG TABLET PO (07:46)
[2022-08-10] MEDS: amLODIPine Besylate 5 MG TABLET PO (07:46)
--- NOTE | 2022-08-10 08:20 | PM.PNGS ---
Subjective Subjective Date of Service: 08/10/22 Interval history: denies abdl pain no N/V feel well wants to go home Physical Exam Vital Signs: Vital Signs: Last Vital Signs Temp 99.3 F 08/10/22 07:30 Pulse 108 H 08/10/22 07:30 Resp 16 08/10/22 07:30 BP 145/80 H 08/10/22 07:30 Pulse Ox 92 08/10/22 07:30 O2 Del Method Room Air 08/10/22 07:30 BMI result Body Mass Index 19.2 Const: General: comfortable and no acute distress Resp: Effort & Inspection: normal respiratory effort Cardio: Rate: regular rate GI: Palpation (GI): Soft to palpation, not firm and nontender Objective Data Active Medications Acetaminophen (Acetaminophen 325 Mg Tablet) 650 mg PO Q6H PRN PRN Reason: Pain, Mild (Pain Scale 1-3) Amlodipine Besylate (Amlodipine Besylate 5 Mg Tablet) 5 mg PO DAILY [facility]; Protocol Last Admin: 08/10/22 07:46 Dose: 5 mg Documented By: LISA Aspirin (Aspirin Enteric Coated 81 Mg Tablet.Dr) 81 mg PO DAILY [facility] Last Admin: 08/10/22 07:46 Dose: 81 mg Documented By: LISA Doxepin HCl (Doxepin Hcl 10 Mg Capsule) 10 mg PO BEDTIME [facility] Last Admin: 08/09/22 21:51 Dose: 10 mg Documented By: DEVON Glucose (Glucose Gel 15 Gm Gel..Gram.) 15 gm PO Q15M PRN; Protocol PRN Reason: per Hypoglycemia Standing Ord. Lactated Ringer's (Lr) 1,000 mls @ 80 mls/hr IVCONT .[id number] [facility] Last Admin: 08/10/22 02:22 Dose: 80 mls/hr Documented By: DEVON Dextrose (D10) 250 mls @ 750 mls/hr IV Q15M PRN; Protocol PRN Reason: per Hypoglycemia Standing Ord. Insulin Human Lispro (Insulin Lispro 100 Unit/Ml 3 Ml Vial) 0 unit SUBCUT QIDACHS [facility]; Protocol Last Admin: 08/10/22 07:36 Dose: Not Given Documented By: LISA Non-Admin Reason: No Insulin Coverage Levothyroxine Sodium (Levothyroxine Sodium 125 Mcg Tablet) 125 mcg PO DAILY@0600 [facility] Last Admin: 08/10/22 05:37 Dose: 125 mcg Documented By: DEVON Lisinopril (Lisinopril 10 Mg Tablet) 10 mg PO DAILY [facility]; Protocol Last Admin: 08/10/22 07:46 Dose: 10 mg Documented By: LISA Metformin HCl (Metformin Hcl Er 500 Mg Tab.Er.24h) 1,000 mg PO BID [facility] Last Admin: 08/10/22 07:46 Dose: 1,000 mg Documented By: LISA Non-Formulary Medication (Teriparatide [Forteo]) 20 mcg SUBCUT 1XD [facility] Prochlorperazine Edisylate (Prochlorperazine Edisylate 10 Mg/2 Ml Vial) 5 mg IVPUSH Q4H PRN PRN Reason: Nausea and Vomiting Last Admin: 08/09/22 08:32 Dose: 5 mg Documented By: COTEMA Sodium Chloride (0.9 % Sodium Chloride Flush 3 Ml Syringe) 3 ml IVFLUSH QSHIFT [facility] Last Admin: 08/10/22 07:48 Dose: Not Given Documented By: LISA Non-Admin Reason: IV Running Vitamin D (Cholecalciferol (Vitamin D3) 25 Mcg Tablet) 50 mcg PO DAILY [facility] Last Admin: 08/10/22 07:46 Dose: 50 mcg Documented By: LISA Zolpidem Tartrate (Zolpidem Tartrate 5 Mg Tablet) 5 mg PO BEDTIME PRN PRN Reason: Insomnia Labs 08/09/22 05:29 08/09/22 05:29 Labs: Laboratory Results - last 24 hr 08/09/22 08/09/22 08/09/22 11:07 16:04 20:22 POC Glucose 119 H 122 H 135 H 08/10/22 07:14 POC Glucose 126 H Microbiology Microbiology Results: Microbiology 08/08/22 21:54 Blood Culture - Preliminary Blood - Venous No growth after 24 hours. 08/08/22 21:54 Blood Culture - Preliminary Blood - Venous No growth after 24 hours. Procedures Date of Service Date of Service: 08/10/22 Progress Note: A&P Assessment and plan (1) Intractable nausea and vomiting: Status: Acute Assessment and Plan: no intestinal obstruction abdomen soft and benign asymptomatic hx of vomitting no secondary to obtructive etiology diet as tolerated reconsult as needed Time Spent With Patient Time: Total time managing care of this patient today ____ minutes. Quality Stroke Does the patient have a stroke diagnosis?: No VTE Prior VTE?: No VTE Risk Level:: Medical - low VTE Device Contraindication: Treatment Not Indicated VTE Drug Contraindication: Treatment Not Indicated
[2022-08-10] MEDS: Docusate Sodium 100 MG CAPSULE PO (10:23)
[2022-08-10] MEDS: polyethylene glycoL 3350 17 GM POWD.PACK PO (10:23)
--- NOTE | 2022-08-10 10:44 | PM.DS ---
DS: Providers Provider Date of Service: 08/10/22 Date of admission: 08/09/22 01:16 Date of discharge: 08/10/22 Primary care physician: Guera Engle MD Consults: 08/09/22 08:40 Consult to General Surgery Routine Consulting Provider: [facility] General Surgeons Reason for consultation: ? Partial bowel obstruction Has provider been notified: No Attending physician on discharge: Svitlana Rey Discharging clinician: Svitlana Rey DS: Diagnosis Discharge Diagnosis (1) Intractable nausea and vomiting: Status: Acute DS: Summary Hospital Course Hospital Course: 82-year-old female with past medical history of diabetes, hypertension, hypothyroidism, presents the hospital with complaints of abdominal pain. patient is French-speaking only, history is mostly obtain? Patient daughter is at bedside and gives most of the history.? She reports that she got home from work and her mother started complaining of abdominal pain.? Patient reports the pain is localized to the epigastric region.? Nonradiating, constant, about 6/10, associated with nausea vomiting, and 1 episode of nonbloody diarrhea denies any fever, no chills no chest pain, shortness of breath, no urinary symptoms and no lower extremity edema.? On arrival to the ED patient's vitals stable with no significant abnormality Labs are significant for normal lipase, normal WBC, otherwise unremarkable, UA is slightly positive for leukocyte Estrace but patient is asymptomatic Abdominal pelvic CT shows a 5th rib fracture, T12 compression fracture, and dilated distal small bowel loops without definite site of obstruction or transition, patient continues to have nausea vomiting, on NG tube was placed in the ED, patient will be admitted for? further monitoring. Hospital course: Patient was admitted for possible gastroenteritis , also initially was question of partial bowel obstruction: Patient was treated with supportive care, bowel rest, IV fluid, and pain management as well as antiemetics: Patient seems to be improved significantly, tolerating diet. Passing bowels. Seen by surgery: Patient is asymptomatic, abdominal exam is benign. no intestinal obstruction, No further intervention recommended. Patient will be going home with p.o. laxatives p.r.n. if needed for constipation. Above management discussed with the patient and her daughter at bedside in detail length. They both understand and in agreement the above plan, time spent 50 minute. Time Spent with Patient Time attestation: Total time managing care of this patient today ____ minutes. Discharge coordination time: Greater than 30 minutes Quality: Safe Use of Opioids Does Pt have an Active Cancer Diagnosis on the Problem List?: No Quality: Stroke Does the patient have a stroke diagnosis?: No Physical Exam Vital Signs: Vital Signs: Last Vital Signs Temp 99.3 F 08/10/22 07:30 Pulse 108 H 08/10/22 07:30 Resp 16 08/10/22 07:30 BP 145/80 H 08/10/22 07:30 Pulse Ox 92 08/10/22 07:30 O2 Del Method Room Air 08/10/22 07:30 BMI result Body Mass Index 19.2 Appearance: Alert.? Oriented X3.? not in distress.? Eyes: Pupils equal, round and reactive to light.? Sclera nonicteric.? ENT: Pharynx normal.? Moist mucous membranes. cvs: rrr, [id number] . res: clear to auscultation ,no rhonchii or wheezing abd: no rebound or guarding ,nt, bs present. ext pulses present , no cyanosis. neuro: axo3 , nonfocal. DS: Data Data Completed and Pending Labs on day of discharge: Laboratory Results - last 24 hr 08/09/22 08/09/22 08/09/22 11:07 16:04 20:22 POC Glucose 119 H 122 H 135 H 08/10/22 07:14 POC Glucose 126 H Preliminary micro results at discharge 08/09/22 07:56 Blood Culture - Preliminary Blood - Venous No growth after 24 hours. 08/09/22 07:56 Blood Culture - Preliminary Blood - Venous No growth after 24 hours. 08/08/22 21:54 Blood Culture - Preliminary Blood - Venous No growth after 24 hours. 08/08/22 21:54 Blood Culture - Preliminary Blood - Venous No growth after 24 hours. Imaging Chest x-ray: Radiologist's impression: ITS Impressions Abdomen/Pelvis CT 08/08/22 22:15 IMPRESSION: 1. Comminuted subacute fracture proximal fifth right rib with associated pleural thickening. 2. Compression fracture superior endplate T12. 3. Dilated distal small bowel loops without definite site of obstruction or transition. 4. Other incidental findings as described above. Fleischner guidelines were followed. Discharge Plan Discharge Anticipated Discharge Date/Time: 08/10/22 10:38 Patient Disposition: Home, Self-Care Discharge Diagnosis: possible viral gastroenteritis, constipation Referrals: Guera Engle MD [Primary Care Provider] - 1 Week Discharge Medications: New docusate sodium [Colace] 100 mg capsule 100 mg PO DAILY PRN (Reason: constipation) Qty: 30 0RF polyethylene glycol 3350 [Miralax] 17 gram/dose powder 17 g PO DAILY PRN (Reason: constipation) Qty: 119 0RF Continued (DME) pen needle, diabetic [UltiCare Pen Needle] 29 gauge x 1/2 needle See Rx Instructions .ROUTE .COMPLEX Qty: 100 5RF Dose Instruction: USE ONCE DAILY DIRECTED Rx Instructions: USE ONCE DAILY DIRECTED (DME) FreeStyle Lite Strips Strip 1 strip MISCELLANEOUS BID amlodipine 5 mg tablet 5 mg PO DAILY doxepin 10 mg capsule 10 mg PO BEDTIME aspirin 81 mg tablet,delayed release (DR/EC) 81 mg PO DAILY calcium carbonate 600 mg calcium (1,500 mg) tablet 600 mg PO BID levothyroxine 125 mcg tablet 125 mcg PO QAM lisinopril 10 mg tablet 10 mg PO QAM zolpidem 5 mg tablet 5 mg PO BEDTIME PRN (Reason: Insomnia) ibuprofen [IBU] 600 mg tablet 600 mg PO NEEDED metformin 500 mg tablet extended release 24 hr 1,000 mg PO BID Rx Instructions: take two tablets by mouth twice daily- morning and evening rosuvastatin 40 mg tablet 40 mg PO BEDTIME cholecalciferol (vitamin D3) [Vitamin D3] 50 mcg (2,000 unit) capsule 50 mcg PO QAM Forteo 20 mcg/dose (600mcg/2.4mL) pen injector 20 mcg subcut 1XD (DME) lancets [TRUEplus Lancets] 33 gauge misc MISCELLANEOUS BID Discharge Orders: Discharge Order (Routine); Ordered 08/10/22 Ordered By: Svitlana Rey Diet: Advance to usual diet Activity on Discharge: As tolerated Stand Alone Forms: Patient Portal Discharge page Care Plan Goals: Patient was admitted for possible gastroenteritis , also initially was question of partial bowel obstruction: Patient was treated with supportive care, bowel rest, IV fluid, and pain management as well as antiemetics: Patient seems to be improved significantly, tolerating diet. Passing bowels. Seen by surgery: Patient is asymptomatic, abdominal exam is benign. No further intervention recommended. Patient will be going home with p.o. laxatives p.r.n. if needed for constipation. Health Concerns: As above. Plan of Treatment: As above. Assessment: As above.
[2022-08-10 11:11] LABS: Glucose, Whole Blood 142 mg/dL (60-115)
--- NOTE | 2022-08-10 13:13 | MHC.CM.PN ---
PATIENT IS DC HOME - SELF CARE
--- NOTE | 2022-08-10 13:42 | MHC.CM.PN ---
HOME - SELF CARE RN AWARE
== END 2022-08-10 13:40 | disposition home or self-care (01) ==
LOC: HO.ED 22:07 → HO.EDOVER 08-09 01:25 → HO.S3 08-09 01:36
PROVIDERS: Admitting Provider Internal Medicine; Emergency Provider Internal Medicine; PCP Family Medicine; Visit Provider Internal Medicine
DX: K59.00 Constipation, unspecified (principal); R10.11 Right upper quadrant pain; R11.2 Nausea with vomiting, unspecified; R19.7 Diarrhea, unspecified; E11.9 Type 2 diabetes mellitus without complications; I10 Essential (primary) hypertension; E03.9 Hypothyroidism, unspecified; E04.2 Nontoxic multinodular goiter; E55.9 Vitamin D deficiency, unspecified; M81.0 Age-related osteoporosis without current pathological fracture
CPT/HCPCS: 36415; 74176; 80048; 80053; 81001; 82947; 83605; 83690; 85025; 85027; 87040; 87086; 87147; 93005; 96361; 96374; 96375; 96376; 99221; 99285; J2270; J2405

== ENCOUNTER 2022-11-17 11:33 | Outpatient (REF) | payer OTHER, SELFPAY ==
[2022-11-17 14:23] LABS: MANUAL DIFF FLAG NO
[2022-11-17 14:26] LABS: Basophils Absolute Auto 0.1 X10*3/uL (0.0-0.2); Basophils Percent Auto 0.9 % (0-2); Eosinophils Absolute Auto 0.1 X10*3/uL (0.0-0.4); Eosinophils Percent Auto 1.5 % (0-4); Hemoglobin 13.4 g/dl (12.0-16.0); Imm Gran Abs Auto 0.02 X10*3/uL (0.00-0.03); Imm Gran Pct Auto 0.3 % (0.0-0.4); Lymphocytes Absolute Auto 2.1 X10*3/uL (1.2-4.9); Lymphocytes Percent Auto 32.1 % (20-40); Mean Corpuscular HGB Conc 32.7 g/dl (31.0-35.0); Mean Corpuscular Hemoglobin 28.9 pg (27.0-33.0); Mean Corpuscular Volume 88.6 fL (80.0-98.0); Mean Platelet Volume 10.6 fL (9.4-12.3); Monocytes Absolute Auto 0.5 X10*3/uL (0.1-1.2); Neutrophils Absolute Auto 3.7 x10*3/uL (2.0-8.3); Neutrophils Percent Auto 57.2 % (45-73); Platelet Count 231 X10*3/uL (160-400); Red Blood Count 4.63 X10*6/uL (4.20-5.50); Red Cell Distribution Width 12.2 % (11.0-16.0); White Blood Count 6.5 X10*3/uL (4.8-10.8)
[2022-11-17 15:07] LABS: Erythrocyte Sedimentation Rate 7 MM/HR (0-20)
[2022-11-17 15:10] LABS: Alanine Aminotransferase 9 U/L (0-31); Albumin Level 4.6 g/dL (3.5-5.0); Alkaline Phosphatase 63 U/L (39-117); Anion Gap 12 (12-20); Aspartate Amino Transferase 15 U/L (5-31); Bilirubin Total 0.5 mg/dL (0.0-1.0); Blood Urea Nitrogen 7 mg/dL (9-16); C Reactive Protein < 0.04 mg/dL (< or = 0.50); Carbon Dioxide 27 mmol/L (22-29); Chloride 107 mmol/L (96-108); Estimated Glomerular Filt Rate > 60; Glucose Fasting 99 mg/dL (60-99); Lactate Dehydrogenase 220 U/L (122-220); Potassium 4.3 mmol/L (3.3-5.1); Sodium 142 mmol/L (135-145); Total Protein 7.4 g/dL (6.5-8.0)
[2022-11-17 15:25] LABS: TSH reflex Free T4 2.92 uIU/mL (0.32-4.0)
[2022-11-18 08:14] LABS: HIV AB/AG Nonreactive (Nonreactive); HIV Num 1 0.05 S/CO (0.00-0.99)
== END 2022-11-17 11:34 | disposition home or self-care (01) ==
LOC: HO.CHCLDS 11:33
PROVIDERS: Visit Provider Family Medicine
DX: R62.7 Adult failure to thrive (principal)
CPT/HCPCS: 36415; 80053; 83615; 84443; 85025; 85652; 86140; 87389

== ENCOUNTER 2022-11-22 09:14 | Outpatient (REF) | payer OTHER, SELFPAY ==
--- NOTE | ~2022-11-22 | XR_ITS ---
EXAMINATION: XR CHEST CLINICAL INFORMATION: 82-year-old with unexplained weight loss. COMPARISON: None available. TECHNIQUE: 2 views of the chest were obtained. FINDINGS: Heart and mediastinum within normal limits. Aorta remains tortuous. No vascular congestion. Stable right medial basilar atelectasis/scarring, irregular opacity right lung base and eventrated right hemidiaphragm. No acute bony pathology. XR/XR chest 2V IMPRESSION: Stable chest.
== END 2022-11-22 09:15 | disposition home or self-care (01) ==
LOC: HO.XRAY 09:14
PROVIDERS: PCP Family Medicine; Visit Provider Family Medicine
DX: R62.7 Adult failure to thrive (principal)
CPT/HCPCS: 71046

== ENCOUNTER 2022-11-23 14:24 | Outpatient (REF) | payer OTHER, SELFPAY ==
[2022-11-23 17:28] LABS: OBS1 NEGATIVE (NEGATIVE)
[2022-11-23 17:29] LABS: OBS Int Ctl Valid YES; OBS2 NEGATIVE (NEGATIVE); OBS3 NEGATIVE (NEGATIVE)
== END 2022-11-23 14:25 | disposition home or self-care (01) ==
LOC: HO.CHCLNP 14:24
PROVIDERS: Visit Provider Family Medicine
DX: R62.7 Adult failure to thrive (principal); K56.600 Partial intestinal obstruction, unspecified as to cause
CPT/HCPCS: 82270

== ENCOUNTER 2024-09-20 09:20 | Outpatient (REF) | payer OTHER, SELFPAY ==
--- OUTSIDE RECORDS SUMMARY | 2024-09-20 09:34 | XMS_ITS | Encounter Summary ---
Author Organization [employer] Address [address] [place] [address] [place] [address] Care Team Providers Care Television Newscast Director Name Role Phone Guera Engle MD Primary Care Provider [phone] Reason for Visit * Reason Comments Med Refill Encounter Details Date Type Department Care Team (Late Contact Info) Description 04/12/2022 Refill [facility] & PEDS [address] [place], [place] [phone] Guera Engle MD [address] [place], [place] [phone] Insomnia, unspecified type Social History Tobacco Use Types Packs/Day Years Used Date Smoking Tobacco: Never Smokeless Tobacco: Never Comments Unknown Sex and Gender Information Value Date Recorded Sex Assigned at Female 12/27/2021 10:16 AM EDT Legal Sex Female 10:16 AM EDT Gender Identity Female 12/27/2021 10:16 AM EDT Sexual Orientation Straight 12/27/2021 10 :16 AM EDT documented as of this encounter Plan of Treatment Upcoming Encounters Date Type Department Care Team (Late Contact Info) Description 11/18/2024 10:00 AM EDT Office Visit [facility] [address] [place], [place] [phone] Guera Engle MD [address] [place], [place] [phone] documented as of this encounter Visit Diagnoses Diagnosis Insomnia, unspecified type documented in this encounter Care Teams Television Newscast Director Relationship Specialty Start Date End Date Guera Engle MD [address] [place] [address] PCP - General Family Medicine 02/17/20 documented as of this encounter
[2024-09-20 13:55] LABS: MANUAL DIFF FLAG NO
[2024-09-20 14:09] LABS: Hematocrit 40.0 % (37.0-47.0); Hemoglobin 13.7 g/dl (12.0-16.0); Imm Gran Abs Auto 0.03 X10*3/uL (0.00-0.03); Imm Gran Pct Auto 0.4 % (0.0-0.4); Lymphocytes Absolute Auto 2.1 X10*3/uL (1.2-4.9); Mean Corpuscular HGB Conc 34.3 g/dl (31.0-35.0); Mean Corpuscular Hemoglobin 29.5 pg (27.0-33.0); Mean Corpuscular Volume 86.0 fL (80.0-98.0); NRBC Abs Auto 0.000 X10*3/uL (0.0-0.012); NRBC Pct Auto 0.0 /100WBC (0.0-0.2); Platelet Count 264 X10*3/uL (160-400); Red Blood Count 4.65 X10*6/uL (4.20-5.50); White Blood Count 8.1 X10*3/uL (4.8-10.8)
[2024-09-20 14:15] LABS: Alanine Aminotransferase 9 U/L (0-31); Albumin Level 4.6 g/dL (3.5-5.0); Alkaline Phosphatase 124 U/L (39-117); Anion Gap 13 (12-20); Aspartate Amino Transferase 15 U/L (5-31); Blood Urea Nitrogen 11 mg/dL (9-16); Calcium 9.6 mg/dL (8.4-10.2); Carbon Dioxide 28 mmol/L (22-29); Chloride 104 mmol/L (96-108); Cholesterol 129 mg/dL (<200); Estimated Glomerular Filt Rate 58; HDL Cholesterol 35 mg/dL (>40); Potassium 4.5 mmol/L (3.3-5.1); Sodium 140 mmol/L (135-145); Total Protein 7.4 g/dL (6.5-8.0); Triglycerides 92 mg/dL (<150)
[2024-09-20 15:24] LABS: Free T4 (Free Thyroxine) 0.91 ng/dL (0.71-1.85)
== END 2024-09-20 09:21 | disposition home or self-care (01) ==
LOC: HO.CHCLDS 09:20
PROVIDERS: Visit Provider Family Medicine
DX: E11.65 Type 2 diabetes mellitus with hyperglycemia (principal); Z79.4 Long term (current) use of insulin
CPT/HCPCS: 36415; 80053; 80061; 84439; 84443; 85025

== ENCOUNTER 2024-12-13 18:30 | Emergency (ER) | payer OTHER, SELFPAY ==
--- NOTE | ~2024-12-13 | CT_ITS ---
CLINICAL HISTORY: abd pain CT abdomen and pelvis with contrast Comparison: CT/OR/SR - CT ABDOMEN PELVIS WITHOUT IV CONTRAST - 08/08/22 22:09 EDT Findings: Bibasilar dependent subsegmental atelectasis. Hiatal hernia. Left renal interpolar region cortical low-attenuation lesion, 1.9 cm; renal cysts. No bowel obstruction, pneumoperitoneum, or pneumatosis. Moderate calcified atherosclerotic disease of the abdominal aorta. Segmental mural thickening of the cecum and proximal ascending colon. The appendix is not grossly identified. Moderate osteopenia. Wedge compression fracture of T1 vertebral body superior endplate with less than 50% vertebral body height loss, stable. IMPRESSION: 1. Wedge compression fracture of T1 vertebral body superior endplate with less than 50% height loss, stable. 2. Cecum and proximal ascending colon segmental mural thickening; nonspecific colitis versus carcinoma. 3. Hiatal hernia. 4. Moderate calcified atherosclerotic disease of the abdominal aorta. 5. Moderate osteopenia. This document has been electronically signed by: Sean Castillo MD on 12/13/2024 23:46:33
[2024-12-13 18:34] VITALS: BP 110/56; PULSE 106; RESP 16; TEMP 36.6; O2SAT 94; BMI 22.7
[2024-12-13 19:03] LABS: Imm Gran Abs Auto 0.03 X10*3/uL (0.00-0.03); Imm Gran Pct Auto 0.3 % (0.0-0.4); MANUAL DIFF FLAG SCAN; Mean Corpuscular HGB Conc 33.3 g/dl (31.0-35.0); Mean Corpuscular Hemoglobin 28.1 pg (27.0-33.0); NRBC Abs Auto 0.000 X10*3/uL (0.0-0.012); NRBC Pct Auto 0.0 /100WBC (0.0-0.2); PLT CLUMP 1; SCAN SMEAR FLAG 1
[2024-12-13 19:04] LABS: Hematocrit 35.1 % (37.0-47.0); Hemoglobin 11.7 g/dl (12.0-16.0); Lymphocytes Absolute Auto 3.1 X10*3/uL (1.2-4.9); Mean Corpuscular Volume 84.4 fL (80.0-98.0); Red Blood Count 4.16 X10*6/uL (4.20-5.50)
[2024-12-13 19:10] LABS: Alanine Aminotransferase 8 U/L (0-31); Albumin Level 4.6 g/dL (3.5-5.0); Alkaline Phosphatase 95 U/L (39-117); Anion Gap 19 (12-20); Aspartate Amino Transferase 23 U/L (5-31); Blood Urea Nitrogen 8 mg/dL (9-16); Calcium 9.3 mg/dL (8.4-10.2); Carbon Dioxide 19 mmol/L (22-29); Chloride 107 mmol/L (96-108); Creatinine Clr Calc Pharmacy 23.7; Estimated Glomerular Filt Rate 39; Magnesium 1.7 mg/dL (1.6-2.6); Potassium 3.8 mmol/L (3.3-5.1); Sodium 141 mmol/L (135-145); Total Protein 7.3 g/dL (6.5-8.0)
--- OUTSIDE RECORDS SUMMARY | 2024-12-13 19:16 | XMS_ITS | Encounter Summary ---
Author Organization [employer] Address [address] [facility] [address] [place] [address] Care Team Providers Care Information Security Consultant Name Role Phone Guera Engle MD Primary Care Provider [phone] Reason for Visit * Reason Comments Med Refill Encounter Details Date Type Department Care Team ([facility] st Contact Info) Description 03/10/2023 Refill [facility] MED [facility] PEDS [address] [place], [place] [phone] Guera Engle MD [address] [place] [address] Insomnia, unspecified type Social History Tobacco Use Types Packs/Day Years Used Date Smoking Tobacco: Never Passive Smoke Exposure: Never Smokeless Tobacco: Never Alcohol Use Standard Drinks/Week Comments Never 0 (1 standard drink = 0.6 oz pur e alcohol) Depression Answer Date Recorded Patient Health Questionnaire-9 Score 0 05/06/2022 Housing Stability Answer Date Recorded What is your housing situation today? I have antonio dumont 12/19/[address] you li ve. Do you have problems with any of the following? None of the above 12/19/2022 Food Insecurity Answer Date Recorded Within the past 12 months, y ou worried that your food would run out before you got money to buy more: Never True 12/19/2022 Within the past 12 months,th e food you bought just didn't last and you didn't have enough money to get more: Never True Transportation Answer Date Recorded In the past 12 months, has l ack of transportation kept you from medical appts, meetings, work or from getting things needed for daily living? No 12/19/2022 Utilities Answer Date Recorded In the past 12 months, has t he electric, gas, oil or water company threatened to shut off services in your home? No 12/19/2022 Depression Answer Date Recorded Patient Health Questionnaire-2 Score 0 05/06/2022 Comments Unknown Sex and Gender Information Value Date Recorded Sex Assigned at Female 12/27/2021 10:16 AM EDT Legal Sex Female 10:16 AM EDT Gender Identity Female 12/27/2021 10:16 AM EDT Sexual Orientation Straight 12/27/2021 10 :16 AM EDT documented as of this encounter Plan of Treatment Upcoming Encounters Date Type Department Care Team (Late st Contact Info) Description 02/06/2025 11:30 AM EST Office Visit [facility] [address], [place] [phone] Guera Engle MD [address] [place] [address] 03/21/2025 10:30 AM EST Office Visit [facility] [address] [place] [address] Tarka, Sarah, OD [address] [place] [address] documented as of this encounter Visit Diagnoses Diagnosis Insomnia, unspecified type documented in this encounter Additional Health Concerns Assessment Noted Time PHQ-9 Depression Total Score: 0 05/07/19 23 10:30 AM EST documented as of this encounter Care Teams Information Security Consultant Relationship Specialty Start Date End Date Guera Engle MD [address] [place] [address] PCP - General Family Medicine 02/17/20 documented as of this encounter
--- OUTSIDE RECORDS SUMMARY | 2024-12-13 19:16 | XMS_ITS | Data Portability ---
Author Organization [employer] Address [address] [place] [address] Care Team Providers Care Pump And Still Operator Name Role Phone HIM CCA OTHER Assessment No assessment recorded. Plan of Treatment Reminders Order Date Submit Date Provider Last Modified By Organization Details Last Modified Time Details Appointments None record ed. Lab None record ed. Referral None record ed. Procedures None record ed. Surgeries None record ed. Imaging None record ed. Medication Orders None record ed. Patient TargetsNo targets recorded. Patient InstructionsNo instructions recorded. Reason for Referral None Reported. Medical Equipment None Reported. Allergies No known drug allergies Medications Name Sig Start Date Stop Date Status Note LastModified by Organization Details LastModified Time losartan 50 mg tablet TAKE 1 TABLET BY MOUTH EVERY MORNING active Not Available Not Available No t Available amlodipine 5 mg tablet TAKE 1 TABLET BY MOUTH EVERY MORNING active Not Available Not Available No t Available doxepin 10 mg capsule TAKE 1 CAPSULE BY MOUTH AT BEDTIME active Not Available Not Available No t Available aspirin 81 mg tablet,delay ed release TAKE 1 TABLET BY MOUTH EVERYDAY AT NOON active Not Available Not Available No t Available calcium 600 mg (as calcium carbonate 1,500 mg) tablet TAKE 1 TABLET BY MOUTH TWICE DAILY IN THE MORNING AND IN THE EVENING active Not Available Not Available No t Available amlodipine 10 mg tablet TAKE 1 TABLET BY MOUTH EVERY MORNING active Not Available Not Available No t Available levothyroxin e 125 mcg tablet TAKE 1 TABLET BY MOUTH EVERY MORNING active Not Available Not Available No t Available zolpidem 5 mg tablet TAKE 1 TABLET BY MOUTH AT BEDTIME NEEDED FOR SLEEP active Not Available Not Available No t Available losartan 100 mg tablet TAKE 1 TABLET BY MOUTH EVERY MORNING active Not Available Not Available No t Available metformin ER 500 mg tablet,exten ded release 24 hr TAKE 2 TABLETS BY MOUTH TWICE DAILY IN THE MORNING AND EVENING active Not Available Not Available Not Available rosuvastatin 40 mg tablet TAKE 1 TABLET BY MOUTH AT BEDTIME active Not Available Not Available No t Available mirtazapine 7.5 mg tablet TAKE 1 TABLET BY MOUTH AT BEDTIME active Not Available Not Available No t Available hydrochlorot hiazide 12.5 mg tablet TAKE 1 TABLET BY MOUTH EVERY MORNING active Not Available Not Available No t Available FreeStyle Lite Strips USE DIRECTED TO TEST BLOOD SUGAR TWICE DAILY active Not Available Not Available No t Available FreeStyle [place] Lite kit USE DIRECTED TO TEST BLOOD SUGAR TWICE DAILY active Not Available Not Available No t Available Vitamin D3 50 mcg (2,000 unit) capsule TAKE 1 CAPSULE BY MOUTH EVERY MORNING active Not Available Not Available No t Available TRUEplus Lancets 33 gauge TEST BLOOD SUGAR TWICE DAILY active Not Available Not Available No t Available Trulicity 0.75 mg/0.5 mL subcutaneous pen injector INJECT ONE PEN (=0.75MG) SUBCUTANEOU SLY ONCE A WEEK DIRECTED active Not Available Not Available No t Available Omron Blood Pressure Monitor-3 Series kit USE TO CHECK BLOOD PRESSURE EVERY DAY DIRECTED active Not Available Not Available Not Available Vitals Date Recorded Respiratory rate Body height Body weight Oxygen saturation Oxygen saturation in Arterial blood by Pulse oximetry Heart rate Body temperature Systolic And Diastolic Provider Name and Address Organization Details Last Updated DateTime 5 16 /min 157.48 cm 92183.1 2 g 97 % 97 % 85 /min 98 [degF] 121/73 mm[Hg] Not Available [facility] - production 5 19:48:27 Social History None recorded. Functional Status None recorded. Mental Status None recorded. Family History Nothing Reported. Medical History No medical history recorded. Gynecological HistoryNo gynecological history recorded. Obstetrics History GPAL:G 0 P 0 0 0 0 Past Encounters Encounter ID Performer Location Encounter Start Date Encounter Closed Date Diagnosis/Indication Diagnosis SNOMED-CT Code Diagnosis ICD10 Code Diagnosis IMO Codes Diagnosis Note [id number] DANYELLE PALMER MD [facility] ED Medical [facility] [address] [place] [address] 10/04/2024 19:39:22 10/05/2024 08:53:05 Nausea [id number] R11.0 [id number] Evaluation in the field was performed by my poultry boner colleague, as noted above, I provided real-time direction and supervisio n for this visit. The evaluation revealed 84-year-ol d female with a history of diabetes, recently started on Trulicity by her PCP received first dose last week (exact dose unknown). Daughter and granddaugh ter report that soon after the injection, the patient developed nausea and vomiting, with the most recent episode occurring two days ago.Today, the patient is at baseline, denies current nausea or vomiting, and is tolerating oral intake well. She was due for her next Trulicity dose yesterday, but the family held it due to concern that the medication may have caused her symptoms.N o abdominal pain, fever, chills, diarrhea, chest pain, or dyspnea. VS : BP 121/ 73, HR 85, RR 16, SpO2 97%, Room Air at RestTemp 98.0 FWeight (Wt): 110 lbsExam :General: Alert, no acute distressMu cous membranes moistLungs : Clear to auscultati on bilaterall yAbdomen: Soft, non-tender , non-disten ded, normal bowel soundsAlle rgies reviewed Impression :History of nausea and vomiting, now resolved, temporally associated with first dose of Trulicity possible medication side effect Plan:Pt and family advised to continue to hold Trulicity until reviewed with PCP on Monday .Monitor for recurrence of nausea, vomiting, or any new symptoms.E ncouraged adequate oral hydration and regular meals as tolerated. Daughter advised to discuss with PCP within the next few days for reassessme nt and considerat ion of alternativ e diabetes therapy.Re d flags discussed with patient/fa simon including : persistent vomiting, inability to tolerate oral intake, severe abdominal pain, fever, confusion Primary care, consider__ _ Dispositio n: We discussed the diagnostic uncertaint y of home visits and the risk associated with this. In this case, the patient and I felt this to be an acceptable and reasonable amount of risk given the benefit of avoiding an ED visit. We discussed the need to seek care urgently/e mergently in the setting of any new or worsening serious symptoms, particular ly persistent vomiting, inability to tolerate oral intake, severe abdominal pain, fever, confusion Health Concerns Section Related Observation LastModified by Organization Detai ls LastModified Time None Recorded Concern Status LastModified by Organization Details LastModified Time None Recorded Advance Directives Directive None Recorded Payers Insurance Date Sequence Insurance Name Policy Number Policy Laureano Covered Member ID Laureano Member ID Guarantor Name 11/21/2024 1 [employer] - DOS ON OR AFTER 2022 - DUAL ELIGIBLE - [facility] [employer] [facility] [employer] (MEDICARE REPLACEMENT/ADV ANTAGE - HMO) Larry Pablo Waldron [id number] Larry Waldron Notes Date Note Type Note Provider Name and Address Organization Details Recorded Time 10/04/2024 text/html ROS as noted in the HPI HPI: Tiriage call returned to patient Daughter who reports patient with vomiting and nausea all this past week. Poor PO intake. Now with weakness and vomited again today yellow /white vomit. Patient BG 121 and BP 135/80 this morning.Daughter has held Trulicity due to vomiting. Patient denies abdominal pain. No fever. ...................... ...................... ...................... ...................... ...................... ...................... ......... [facility] Nurse Triage Notes (Rayna Cardenas): Chief Complaints: Nausea / Vomiting PMH: Diabetes Mellitus Type 2, Gastroesophageal Reflux Disease (GERD), Hypertension PMH Reviewed at 10/04/2024 - 14:07 Allergies Reviewed at 10/04/2024 - 14:07 Comments: HPI reviewed ...................... ...................... ...................... ...................... ...................... ...................... ......... Baseline Information: Baseline Creatinine: 0.92mg/dL Baseline Hb: 13.7g/dL Baseline HCt: 40% ...................... ...................... ...................... ...................... ...................... ...................... ......... Leadership Development Instructor Note From Hola Zelaya: [facility] visit for female pt with reported nausea and vomiting. Pt is Israeli speaking and grand daughter translated during visit. Pt was recently started on trulicity for diabetes and experienced a few bouts of vomiting and nausea. Pt presents at home with grand daughter. Pt first took trulicity a few days ago with nausea and vomiting occurring afterwards. No reported nausea at present and no vomiting in last couple of days but pt was concerned and did not take second dose of trulicity. V/S taken as listed. Pt afebrile. [place] [facility] [place] who advised pt discontinue trulicity for now and contact PCP on Monday morning for further guidance. Reviewed red flags for ED. Pt education provided. ...................... ...................... ...................... ...................... ...................... ...................... ......... [facility] Consulted: Danyelle Palmer ...................... ...................... ...................... ...................... ...................... ...................... ......... Disposition: Fulfilled DANYELLE PALMER MD [address] [place] [address],[address], [place], [address], STEPHANIE - TUYET RICHARDS 10/04/2024 20:38:20 OBGyn Episode No OBEpisode recorded.
--- OUTSIDE RECORDS SUMMARY | 2024-12-13 19:16 | XMS_ITS | Encounter Summary ---
Author Organization [employer] Address [address] [facility] [address] [place] [address] Care Team Providers Care Health Claims Examiner Name Role Phone Guera Engle MD Primary Care Provider [phone] Reason for Visit * Reason Comments Med Refill Encounter Details Date Type Department Care Team ([facility] st Contact Info) Description 09/06/2024 Refill [facility] [address] [place], [place] [phone] Guera Engle MD [address] [place] [address] Insomnia, unspecified type Social History Tobacco Use Types Packs/Day Years Used Date Smoking Tobacco: Never Passive Smoke Exposure: Never Smokeless Tobacco: Never Alcohol Use Standard Drinks/Week Comments Never 0 (1 standard drink = 0.6 oz pur e alcohol) Alcohol Answer Date Recorded Frequency of Alcohol Consumption Not on file 12/15/2023 Average Number of Drinks Not on file 024 Frequency of Binge Drinking Not on file 11/27 Score 0 12/15/2023 Depression Answer Date Recorded Patient Health Questionnaire-9 Score 0 12/15/2023 Patient Health Questionnaire-9 Score 0 12/15/2023 Last PHQ-9: Questionnaire Data Not on file 1 Housing Stability Answer Date Recorded What is your housing situation today? I have antonio dumont 05/25/[address] you li ve. Do you have problems with any of the following? None of the above 05/25/2023 Food Insecurity Answer Date Recorded Within the past 12 months, y ou worried that your food would run out before you got money to buy more: Never True 05/25/2023 Within the past 12 months,th e food you bought just didn't last and you didn't have enough money to get more: Never True Transportation Answer Date Recorded In the past 12 months, has l ack of transportation kept you from medical appts, meetings, work or from getting things needed for daily living? No 05/25/2023 Utilities Answer Date Recorded In the past 12 months, has t he electric, gas, oil or water company threatened to shut off services in your home? No 05/25/2023 Depression Answer Date Recorded Patient Health Questionnaire-2 Score 0 12/15/2023 Comments Unknown Sex and Gender Information Value [...] Description 02/06/2025 11:30 AM EST Office Visit [facility] [address] [place] [address] Guera Engle MD [address] [place] [address] 03/21/2025 10:30 AM EST Office Visit [facility] [address] [place] [address] Tarka, Sarah, OD [address] [place] [address] documented as of this encounter Visit Diagnoses Diagnosis Insomnia, unspecified type documented in this encounter Additional Health Concerns Assessment Noted Time PHQ-9 Depression Total Score: 0 12/15/19 9:51 AM EDT documented as of this encounter Care Teams Health Claims Examiner Relationship Specialty Start Date End Date Guera Engle MD [address] [place] [address] PCP - General Family Medicine 02/17/20 documented as of this encounter
--- OUTSIDE RECORDS SUMMARY | 2024-12-13 19:16 | XMS_ITS | Encounter Summary ---
Author Organization [employer] Address [address] [facility] [address] [place] [address] Care Team Providers Care Program Director/Music Director Name Role Phone Guera Engle MD Primary Care Provider [phone] Reason for Visit * Reason Comments Med Refill Encounter Details Date Type Department Care Team ([facility] st Contact Info) Description 06/23/2023 Refill [facility] PEDS [address] [place], [place] [phone] Guera Engle MD [address] [place] [address] Insomnia, unspecified type Social History Tobacco Use [...] Description 02/06/2025 11:30 AM EST Office Visit [facility] [address] [place], [place] [phone] Guera Engle MD [address] [place] [address] 03/21/2025 10:30 AM EST Office Visit [facility] [address] [place] [address] Tarka, Sarah, OD [address] [place] [address] documented as of this encounter Visit Diagnoses Diagnosis Insomnia, unspecified type documented in this encounter Additional Health Concerns Assessment Noted Time PHQ-9 Depression Total Score: 0 05/07/19 23 10:30 AM EST documented as of this encounter Care Teams Program Director/Music Director Relationship Specialty Start Date End Date Guera Engle MD [address] [place] [address] PCP - General Family Medicine 02/17/20 documented as of this encounter
--- OUTSIDE RECORDS SUMMARY | 2024-12-13 19:16 | XMS_ITS | Clinical Summary ---
Author Organization [employer] Address [address] [place] [address] [address] [place] [address] Care Team Providers Care Electronic Publisher Name Role Phone Guera Engle MD Primary Care Provider [phone] Allergies No known active allergies Medications Acetaminophen 500 MG capsule Take 2 capsules by mouth every 6 (six) hours. 021 Active baclofen (Lioresal) 5 MG tablet Take 1 tablet by mouth in the morning and 1 tablet in the evening. 021 Active Forteo injection 022 Active polyethylene glycol, PEG, 3350 (Glycolax) 17 GM/SCOOP powder 023 Active docusate sodium (Colace) 100 MG capsule 023 Active ibuprofen 600 MG tablet Take 1 tablet (600 mg) by mouth 3 times daily. 60 tablet 023 Active Blood Pressure kit 1 Units Once per day. 1 kit 024 Active calcium carbonate 1500 (600 Ca) MG tabletIndications :Osteoporosis, unspecified osteoporosis type, unspecified pathological fracture presence TAKE 1 TABLET BY MOUTH TWICE DAILY IN THE MORNING AND IN THE EVENING 180 tablet 1 025 Active Aspirin Low Dose 81 MG EC tabletIndications :Coronary artery disease, unspecified vessel or lesion type, unspecified whether angina present, unspecified whether craig or transplanted heart TAKE 1 TABLET BY MOUTH EVERYDAY AT NOON 90 tablet 1 025 Active doxepin (SINEquan) 10 MG capsuleIndication s:Insomnia, unspecified type TAKE 1 CAPSULE BY MOUTH AT BEDTIME 90 capsule 1 025 Active losartan (Cozaar) 100 MG tablet TAKE 1 TABLET BY MOUTH EVERY MORNING 90 tablet 1 025 Active metFORMIN XR (Glucophage-XR) 500 MG 24 hr tabletIndications :Type 2 diabetes mellitus without complication, without long-term current use of insulin (HCC) TAKE 2 TABLETS BY MOUTH TWICE DAILY IN THE MORNING AND EVENING 360 tablet 1 Active TRUEplus Lancets 33G misc TEST BLOOD SUGAR TWICE DAILY 100 each 11 025 Active rosuvastatin (Crestor) 40 MG tablet TAKE 1 TABLET BY MOUTH AT BEDTIME 90 tablet 1 Active glucose blood (FREESTYLE LITE) test strip Use to monitor glucose BID 60 strip 11 Active Blood Glucose Monitoring Suppl (FreeStyle [place] Lite) w/Device kit Use to test blood sugar BID 1 kit Active mirtazapine (Remeron) 7.5 MG tablet TAKE 1 TABLET BY MOUTH AT BEDTIME 90 tablet 1 Active D3 Super Strength 50 MCG (2000 UT) capsule TAKE 1 CAPSULE BY MOUTH EVERY MORNING 90 capsule 1 Active zolpidem (Ambien) 5 MG tabletIndications :Insomnia, unspecified type TAKE 1 TABLET BY MOUTH AT BEDTIME NEEDED FOR SLEEP 28 tablet 1 025 Active amLODIPine (Norvasc) 10 MG tabletIndications :Essential hypertension TAKE 1 TABLET BY MOUTH EVERY MORNING 90 tablet 1 Active levothyroxine (Synthroid, Levoxyl) 125 MCG tabletIndications :Acquired hypothyroidism TAKE 1 TABLET BY MOUTH EVERY MORNING 90 tablet 1 Active insulin glargine (Lantus SoloStar) 100 UNIT/ML pen Inject 10 Units under the skin at bedtime. 9 mL 2 Active pen needle 31G x 5 mm misc Use as instructed 100 each 12 025 2025 Active UltiCare Pen [place] 29G X 12.7MM misc USE ONCE DAILY DIRECTED 023 2024 Discontinued levothyroxine (Synthroid, Levoxyl) 125 MCG tabletIndications :Acquired hypothyroidism TAKE 1 TABLET BY MOUTH EVERY MORNING 90 tablet 1 025 2024 Discontinued hydroCHLOROthiazi de 12.5 MG tablet TAKE 1 TABLET BY MOUTH EVERY MORNING 90 tablet 1 025 2024 Discontinued(T herapy completed) Dulaglutide (Trulicity) 0.75 MG/0.5ML solution auto-injectorIndi cations:Type 2 diabetes mellitus with hyperglycemia, with long-term current use of insulin (HCC) Inject 75 mcg under the skin 1 (one) time per week. 2 mL 3 025 2024 Discontinued(T herapy completed) insulin glargine (Lantus) 100 UNIT/ML injection Inject 10 Units under the skin at bedtime. 10 mL 1 025 2024 Discontinued ondansetron (Zofran) 4 MG tabletIndications :Nausea and vomiting, unspecified vomiting type Take 1 tablet (4 mg) by mouth every 8 (eight) hours if needed for nausea or vomiting for up to 7 days. 20 tablet 025 2024 Active Problems Problem Noted Date Diagnosed Date Type 2 diabetes mellitus wit h hyperglycemia, unspecified whether mcfp insulin use 05/03/2023 Assessment & Plan (11/19/2024 11:02 AM EDT): Patient with uncontrolled diabetes. Concern providing glipizide if she is not eating. Will start patient on long-acting insulin, Lantus 10 units subcutaneous. With a target A1c of less than 8.5% and a fasting target of 100 to 180 mg/dL. Will refer to clinical pharmacist to assist with insulin titration. Will follow-up in 2 months. Left shoulder pain 12/19/2022 12/19/2022 Vitamin D deficiency 08/10/2022 Rotator cuff impingement syndrome of left should er 08/10/2022 Partial intestinal obstruction 08/10/2022 Painful arc syndrome of left shoulder 08/10/2022 Adhesive capsulitis of left shoulder 08/10/2022 Abnormal thyroid biopsy 08/10/2022 Osteoporosis 01/18/2022 Degeneration of lumbar intervertebral disc 05/16 Multinodular goiter 09/17/2019 Nausea and vomiting 01/24/2018 Assessment & Plan (08/11/2022 10:09 AM EDT): Patient with intermittent nausea and vomiting with associated abdominal pain. Will start on Zofran. Increased frequency of urination 12/27/2017 Nocturia 12/27/2017 Type 2 diabetes mellitus without complication Assessment & Plan (12/15/2023 11:19 AM EDT): -Controlled, continue current medications. 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 Advised the pt on the importance of yearly check-ups as a diabetic. A1C: 6.3 POCT Glucose: 126 Relevant orders: Blood pressure kit- F/u in 2 weeks with nurse for BP readings Albumin, Random Urine W/Creatinine CBC auto differential Comprehensive Metabolic Panel Lipid Panel, Standard TSH W/Reflex to FT4 Assessment & Plan (06/05/2023 4:14 PM EDT): Controlled, Continue current medications. Assessment & Plan (05/03/2023 10:13 PM EST): Controlled. Patients A1C is 6.2%. Continue current regimen. F/U in a month. Future Appointments Date Time Provider Department Center 06/05/2023 1:45 PM Guera Engle MD [facility] Assessment & Plan (08/11/2022 10:07 AM EDT): POC a1c 6.2&. Controlled. Continue current regimen. Will follow up in 2 months. Assessment & Plan (02/09/2022 11:47 AM EST): Reports compliance with meds. Last a1c 6.3% on 01/05/22 visit. F/u in 3 months. Gastroesophageal reflux disease 11/23/2011 Insomnia 11/23/2011 Assessment & Plan (12/19/2022 7:45 PM EDT): Discussed with patient and daughter of prescribing higher dose of ambien on an elder patient who is a female, they report lack of sleep affecting her daily living increased dose and refilled doxepin. She will also start taking mirtazapine, clarify with pharmacy that prescription was waiting for pickup. Will f/up in 1 month Assessment & Plan (08/11/2022 10:08 AM EDT): Improved. Will refill Ambien for x1 month supply given patient will be traveling. Assessment & Plan (02/09/2022 11:47 AM EST): No improvement with doxepin, already failed trial w/ trazodone. Will trial ambien 5 mg, explained to patient unable to increase beyond that amount given her age and fall risk in the setting of her osteoporosis and age. 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 Essential hypertension 08/17/2011 Assessment & Plan (03/14/2024 1:42 PM EST): Continue on current medications, BP is mostly controlled. Follow up in 4 months. Assessment & Plan (12/15/2023 11:06 AM EDT): Pt's BP was 168/82. Possible discrepancy for high BP due to Losartan and Lisinopril. Pt will continue to take Lisinopril and Amlodipine. Discontinued Losartan. Relevant orders: Blood Pressure kit - If readings are high, necessary adjustments will be made. Assessment & Plan (06/05/2023 4:00 PM EDT): BP is controlled. Continue medications and f/u in 6 months. Assessment & Plan (05/03/2023 10:17 PM EST): Controlled. Advised to keep monitoring and continue treatment regimen. F/U in a month. Assessment & Plan (12/19/2022 7:43 PM EDT): Uncontrolled, recommended compliance, target DBP> 65 mmHg. Target BP < 140/90 mmHg Advised to keep monitoring. Nuclear senile cataract 08/17/2011 Pure hypercholesterolemia 08/17/2011 Assessment & Plan (05/03/2023 10:16 PM EST): Labs: Lipid panel Tear film insufficiency 08/17/2011 Encounters Date Type Department Care Team Description 12/02/2024 Refill [facility] [address] [place] [address] Guera Engle MD Acquired hypothyroidism 11/28/2024 Telephone [facility] [address] [place] [address] Guera Engle MD Medication Question 11/19/2024 10:40 AM EDT Office Visit [facility] [address] [place] [address] Matt, Laurence, OD Type 2 diabetes mellitus without complication, unspecified whether mcfp insulin use ([facility]) (Primary Dx) 11/19/2024 Travel 11/18/2024 10:00 AM EDT Office Visit [facility] [address] [place] [address] Guera Engle MD Type 2 diabetes mellitus with hyperglycemia, without long-term current use of insulin (CMS/[facility]) (Primary Dx); Nausea and vomiting, unspecified vomiting type; Encounter for immunization; Type 2 diabetes mellitus with hyperglycemia, unspecified whether mcfp insulin use ([facility]) 11/18/2024 Travel 11/11/2024 Patient Outreach [facility] [address] [place] [address] Guera Engle MD Pre-visit Planning (SDOH screening completed on 09/20/24 ) 11/06/2024 Refill [facility] [address] [place] [address] aSndhya Alford MD Essential hypertension 10/15/2024 Refill [facility] [address] [place] [address] Guera Engle MD Insomnia, unspecified type 10/04/2024 Telephone [facility] [address] [place] [address] Guera Engle MD Nurse Triage 09/29/2024 Refill [facility] [address] [place] [address] Guera Engle MD 09/20/2024 8:45 AM EDT Office Visit [facility] [address] [place] [address] Guera Engle MD Type 2 diabetes mellitus with hyperglycemia, with long-term current use of insulin ([facility]) (Primary Dx) 09/20/2024 Orders Only [facility] [address] [place] [address] Guera Engle MD 09/20/2024 Travel 09/13/2024 Patient Outreach [facility] [address] [place] [address] Guera Engle MD Pre-visit Planning (SDOH unable to complete. ) 09/12/2024 Telephone [facility] [address] [place] [address] Guera Engle MD chart prep from Last 3 Months Immunizations Immunization Administration Dates Next Due Hep B, adult 01/14/2022,02/23/2017,01/23/2017 Influenza High-dose Quadriva lent Preservative Free 12/11/2020 Influenza injectable quadriv alent IIV4 with preservative 01/23/2017,12/22/2015 Influenza injectable quadriv alent preservative free 11/17/2022,01/05/2022,12/15/2014,05/19 Influenza, High Dose Seasona l, Preservative Free 11/18/2024,12/15/2023,12/27/2017 Influenza, IIV3, injectable 12/17/2010,0 11/20/2009,11/07/2008,12/25,01/11/2006 Influenza, Split (incl. saige fied surface antigen) 02/07/2013 Moderna Covid-19 Vaccine 12+ 02/18/2021,06/09/19 21,05/11/2020 Pfizer Covid-19 Vaccine 12+ 02/09/2024, Pneumococcal Conjugate PCV 20 11/17/2022 Pneumococcal Polysaccharide PPSV23 04/16/2010 Tdap 12/22/2015 Zoster, Recombinant 12/19/2022 Zoster, live 05/19/2014 Social History Tobacco Use Types Packs/Day Years Used Date Smoking Tobacco: Never Passive Smoke Exposure: Never Smokeless Tobacco: Never Tobacco Cessation:Counseling Given: Not Answered Alcohol Use Standard Drinks/Week Comments Never 0 [...] housing situation today? I have antonio dumont 09/20/[address] you li ve. Do you have problems with any of the following? None of the above 09/20/2024 Food Insecurity Answer Date Recorded Within the past 12 months, y ou worried that your food would run out before you got money to buy more: Never True 09/20/2024 Within the past 12 months,th e food you bought just didn't last and you didn't have enough money to get more: Never True Transportation Answer Date Recorded In the past 12 months, has l ack of transportation kept you from medical appts, meetings, work or from getting things needed for daily living? No 09/20/2024 Utilities Answer Date Recorded In the past 12 months, has t he electric, gas, oil or water company threatened to shut off services in your home? No 09/20/2024 Depression Answer Date Recorded Patient Health Questionnaire-2 Score 0 12/15/2023 Internet Access Answer Date Recorded Internet Access Q1 Yes 09/20/2024 Internet Access Q2 Not on file 09/20/2024 Comments Unknown Sex and Gender Information Value Date Recorded Sex Assigned at Female 12/27/2021 10:16 AM EDT Legal Sex Female 10:16 AM EDT Gender Identity Female 12/27/2021 10:16 AM EDT Sexual Orientation Straight 12/27/2021 10 :16 AM EDT Last Filed Vital Signs Vital Sign Reading Time Taken Comments Blood Pressure 122/70 11/18/2024 10:19 AM EDT Pulse 82 11/18/2024 10:19 AM EDT Temperature 37 C (98.6 F) 11/18/2024 10:19 AM EDT Respiratory Rate 20 11/18/2024 10:19 AM EDT Oxygen Saturation 97% 11/18/2024 10:19 AM EDT Inhaled Oxygen Concentration - - Weight 47 kg (103 lb 9.6 oz) 11/18/2024 10:19 AM EDT Height 150 cm (4' 11.06 ) 11/18/2024 10:19 AM ED T Body Mass Index 20.89 11/18/2024 10:19 AM EDT Plan of Treatment Upcoming Encounters Date Type Department Care Team (Late st Contact Info) Description 02/06/2025 11:30 AM EST Office Visit [facility] [address] [place], [place] [phone] Guera Engle MD [address] [place] [address] 03/21/2025 10:30 AM EST Office Visit [facility] [address] [place] [address] TarkaSarah, OD [address] [place] [address] Health Maintenance Due Date Last Done Comments Eye Exam 02/20/1950 RSV Patients and Patients Aged 60 years or older (1 - 1-dose 75+ series) 2017 Diabetes: Urine Protein Screening 01/05/2023 01/05/2022, 02/18/2021 COVID-19 Vaccine ( season) 2024 02/09/2024, 06/05/2023, 02/18/2021, Additional history exists Depression Screening 12/14/2024 12/15/2023, 12/15/19 24 Diabetes: Hemoglobin A1C 12/21/202409/20/2 025, 12/15/2023, 05/03/2023, Additional history exists Alcohol/Substance Use Screening 09/20/2025 09/20/2024 Lipid Panel 09/20/2025 09/20/2024, 11/0 10/2021, 02/18/2021, Additional history exists SDOH Screening 09/20/2025 09/20/2024 Diabetes: Foot Exam 11/18/2025 11/18/2024, 11/18/2024, 11/18/2024, Additional history exists Tobacco Screening 11/18/2025 11/18/2024 DTaP/Tdap/Td Vaccines (2 - Td or Tdap) 12/21/2025 12/22/2015 Hepatitis B Vaccines Completed 01/14/2022, 02/23/2017, 01/23/2017 Pneumococcal Vaccine: 50+ Years Completed 11/17/2022, 04/16/2010 Zoster Vaccines Discontinued 12/19/2022, 05/19/2014 Influenza Vaccine Completed 11/18/2024, , 11/17/2022, Additional history exists HIB Vaccines Aged Out No longer eligi ble based on patient's age to complete this topic HPV Vaccines Aged Out No longer eligi ble based on patient's age to complete this topic Hepatitis A Vaccines Aged Out No long er eligible based on patient's age to complete this topic IPV Vaccines Aged Out No longer eligi ble based on patient's age to complete this topic Meningococcal B Vaccine Aged Out No l onger eligible based on patient's age to complete this topic Meningococcal Vaccine Aged Out No shakir corina eligible based on patient's age to complete this topic RSV under 20 months Aged Out No longe r eligible based on patient's age to complete this topic Rotavirus Vaccines Aged Out No longer eligible based on patient's age to complete this topic Procedures Procedure Name Priority Date/Time Associated Diagnosis Comments MAGNESIUM Routine 12/13/2024 6:50 PM EDT HEPATIC FUNCTION PANEL Routine 6:50 PM EDT COMPREHENSIVE METABOLIC PANEL Routine 12/13/2024 6:50 PM EDT HP LINK DIABETIC FOOT EXAM Routine 11/18/2024 T4, FREE Routine 09/20/2024 9:25 AM EDT LIPID PANEL, STANDARD Routine 09/20/2024 9:25 AM EDT Type 2 diabetes mellitus without complication, unspecified whether salvage determiner insulin use (CMS/HCC) TSH W/REFLEX TO FT4 Routine 09/20/2024 9 :25 AM EDT Type 2 diabetes mellitus without complication, unspecified whether mcfp insulin use (CMS/HCC) COMPREHENSIVE METABOLIC PANEL Routine 09/20/2024 9:25 AM EDT Type 2 diabetes mellitus without complication, unspecified whether mcfp insulin use (CMS/HCC) CBC WITH AUTO DIFFERENTIAL Routine 09/20/2024 9:25 AM EDT Type 2 diabetes mellitus without complication, unspecified whether salvage determiner insulin use (CMS/HCC) POCT GLUCOSE Routine 09/20/2024 9:04 AM EDT Type 2 diabetes mellitus with hyperglycemia, with long-term current use of insulin (CMS/[facility]) POCT GLYCATED HEMOGLOBIN, TOTAL Routine 09/20/2024 9:02 AM EDT Type 2 diabetes mellitus with hyperglycemia, with long-term current use of insulin ([facility]) ALBUMIN, RANDOM URINE W/CREATININE Routine 01/05/2022 12:12 PM EST from Last 3 Months or Most Recently Relevant to Health Maintenance Results * Magnesium (12/13/2024 6:50 PM EDT) Magnesium 1.7 1.6 - 2.6 mg/dL [facility] 12/13/2024 6:50 PM EDT 12/13/2024 6:52 PM EDT us Generic External Data Provider LAB BLOOD ORDERAB LES Final Result [facility] [address] [place] [phone] * Hepatic Function Panel (12/13/2024 6:50 PM EDT) Bilirubin, Direct 0.1 0.0 - 0.5 mg/dL [facility] 12/13/2024 6:50 PM EDT 12/13/2024 6:52 PM EDT us Generic External Data Provider LAB BLOOD ORDERAB LES Final Result [facility] [address] [place] [phone] [phone] * (ABNORMAL) Comprehensive Metabolic Panel (12/13/2024 6:50 PM EDT) Only the most recent of2 resultswithin the time period is included. Sodium 141 135 - 145 mmol/L [facility] Potassium 3.8 3.3 - 5.1 mmol/L [facility] Comment:Slight Hemolysis.Int erpret result with caution. Chloride 107 96 - 108 mmol/L [facility] Carbon Dioxide 19(L) 22 - 29 mmol/L [facility] Anion Gap 19 12 - 20 [facility] Urea Nitrogen (BUN) 8(L) 9 - 16 mg/dL [facility] Creatinine, Serum 1.31 0.5 - 1.4 mg/dL [facility] Creatinine Clr Calc Pharmacy 23.7 [facility] Comment:Provided height and weight: 152.4 cm,52.798 kg.eGFR (calculated from the MDRD study equation) and eCrCl(calculated from the Cockcroft-Gault equation) are based ondifferent parameters and may not yield comparable results.If eCrCl result is absurd, please check patient'sheight/weight. Estimated Glomerular Filt Rate 39 [facility] Comment:Chronic Kidney Disea se: Estimated GFR < 60 mL/min/1.44n1Iratcg Kidney Disease: Estimated GFR < 15 mL/min/1.73m2 Glucose 161(H) 60 - 115 mg/dL [facility] Calcium 9.3 8.4 - 10.2 mg/dL [facility] Bilirubin, Total 0.4 0.0 - 1.0 mg/dL [facility] Aspartate Amino Transferase 23 5 - 31 U/L [facility] Comment:Slight Hemolysis.Int erpret result with caution. Alanine Aminotransferase 8 0 - 31 U/L [facility] Total Protein 7.3 6.5 - 8.0 g/dL [facility] Albumin Level 4.6 3.5 - 5.0 g/dL [facility] Alkaline Phosphatase 95 39 - 117 U/L [facility] 12/13/2024 6:50 PM EDT 12/13/2024 6:52 PM EDT us Generic External Data Provider LAB BLOOD ORDERAB LES Final Result Performing Organization Address [facility]/ZIP Co de Phone Number [facility] [address] [place] [address] [phone] * HP Diabetic Foot Exam (11/18/2024) Narrative Guera Engle MD - 11/18/2024 See note from that day. us Guera Engle MD HEALTH MAINTENANCE Final Resu lt * (ABNORMAL) TSH W/Reflex to FT4 (09/20/2024 9:25 AM EDT) TSH reflex Free T4 5.87(H) 0.32 - 4.0 uIU/mL [facility] Blood Venous blood specimen / Unknown 09/20/2024 9:25 AM EDT 09/20/2024 1:50 PM EDT us Guera Engle MD LAB BLOOD ORDERABLES Final Re sult [facility] [address] [place] [phone] [phone] * CBC auto differential (09/20/2024 9:25 AM EDT) White Blood Count 8.1 4.8 - 10.8 X10*3/uL [facility] Red Blood Count 4.65 4.20 - 5.50 X10*6/uL [facility] Hemoglobin 13.7 12.0 - 16.0 g/dl [facility] Hematocrit 40.0 37.0 - 47.0 % [facility] Mean Corpuscular Volume 86.0 80.0 - 98.0 fL [facility] Mean Corpuscular Hemoglobin 29.5 27.0 - 33.0 pg [facility] Mean Corpuscular HGB Conc 34.3 31.0 - 35.0 g/dl [facility] Red Cell Distribution Width 11.9 11.0 - 16.0 % [facility] Platelet Count 264 160 - 400 X10*3/uL [facility] Mean Platelet Volume 9.7 9.4 - 12.3 fL [facility] Neutrophils Percent Auto 64.2 45 - 73 % [facility] Imm Gran Pct Auto 0.4 0.0 - 0.4 % [facility] Lymphocytes Percent Auto 25.8 20 - 40 % [facility] Monocytes Percent Auto 8.4 2 - 11 % [facility] Eosinophils Percent Auto 0.7 0 - 4 % [facility] Basophils Percent Auto 0.5 0 - 2 % [facility] NRBC Pct Auto 0.0 0.0 - 0.2 /100WBC [facility] Neutrophils Absolute Auto 5.2 2.0 - 8.3 x10*3/uL [facility] Imm Gran Abs Auto 0.03 0.00 - 0.03 X10*3/uL [facility] Lymphocytes Absolute Auto 2.1 1.2 - 4.9 X10*3/uL [facility] Monocytes Absolute Auto 0.7 0.1 - 1.2 X10*3/uL [facility] Eosinophils Absolute Auto 0.1 0.0 - 0.4 X10*3/uL [facility] Basophils Absolute Auto 0.0 0.0 - 0.2 X10*3/uL [facility] NRBC Abs Auto 0.000 0.0 - 0.012 X10*3/uL [facility] Blood Venous blood specimen / Unknown 09/20/2024 9:25 AM EDT 09/20/2024 1:50 PM EDT us Guera Engle MD LAB BLOOD ORDERABLES Final Re sult Performing Organization Address [facility]/ZIP Co de Phone Number [facility] [address] [place] [phone] * T4, Free (09/20/2024 9:25 AM EDT) Free T4 (Free Thyroxine) 0.91 0.71 - 1.85 ng/dL [facility] 09/20/2024 9:25 AM EDT 09/20/2024 1:50 PM EDT us Guera Engle MD LAB BLOOD ORDERABLES Final Re sult Performing Organization Address [facility] Co de Phone Number [facility] [address] [place] [phone] * (ABNORMAL) Lipid Panel, Standard (09/20/2024 9:25 AM EDT) Triglycerides 92 <150 mg/dL [facility] Comment:Desirable Triglyceri de: less than 150 mg/dLBorderline High Triglyceride 150-199 mg/dLHigh Triglyceride: 200-499 mg/dLVery High Triglyceride: greater than or equal to 5OO mg/dL Cholesterol 129 <200 mg/dL [facility] Comment:Desirable Cholestero l: less than 200 mg/dLBorderline High Cholesterol: 200-239 mg/dLHigh Cholesterol: greater than 239 mg/dL LDL Cholesterol Calculated 76 <100 mg/dL [facility] Comment:Desirable LDL: less than 100 mg/dLNear Optimal/Above Optimal LDL: 110- 129 mg/dLBorderline High LDL: 130-159 mg/dLHigh LDL: 160-189 mg/dLVery High LDL: greater than or equal to 190 mg/dL HDL Cholesterol 35(L) >40 mg/dL [facility] Comment:Desirable HDL: great er than 40 mg/dL Note: This HDL assay may give artificially low results in patients with liver disease. Blood Venous blood specimen / Unknown 09/20/2024 9:25 AM EDT 09/20/2024 1:50 PM EDT Guera Engle MD LAB BLOOD ORDERABLES Final Re sult [facility] [address] [place] [phone] [phone] * (ABNORMAL) POCT Glucose (09/20/2024 9:04 AM EDT) Glucose Blood, POC 351(A) 60 - 200 mg/dL QC Media Lot # [id number] Lot# Expiration Date Blood Capillary blood specimen / Unknown 09/20/2024 9:04 AM EDT Result [facility] Guera Engle MD POINT OF CARE TEST ENTER/EDIT ORDERABLES Final Result * (ABNORMAL) POCT HGB A1C (09/20/2024 9:02 AM EDT) Hemoglobin A1C 12.5(A) 4.0 - 5.7 % QC Media Lot # [id number] Lot# Expiration Date Blood 09/20/2024 9:02 AM EDT Result [facility] Guera Engle MD POINT OF CARE TEST ENTER/EDIT ORDERABLES Final Result * ALBUMIN, RANDOM URINE W/CREATININE (01/05/2022 12:12 PM EST) Microalbumin Urine 0.4 See Note: mg/dL CONVERTED LEGACY LABS Comment: Reference Range: Reference Range Not established Microalb/Creat Ratio 6 <30 mcg/mg creat CONVERTED LEGACY LABS Comment: The ADA defines abnormalities in albumin excretion as follows: Albuminuria Category Result (mcg/mg creatinine) Normal to Mildly increased <30 Moderately increased 30-299 Severely increased > OR = 300 The ADA recommends that at least two of three specimens collected within a 3-6 month period be abnormal before considering a patient to be within a diagnostic category. Creatinine, Urine 65 20 - 275 mg/dL CONVERTED LEGACY LABS 01/05/2022 12:1 2 PM EST us Guera Engle MD LAB URINE ORDERABLES Final Re sult CONVERTED LEGACY LABS from Last 3 Months or Most Recently Relevant to Health Maintenance Insurance [facility] ASSISTED OPTIONS (HMO D-SNP) [facility] STANDARD Care Teams Electronic Publisher Relationship Specialty Start Date End Date Guera Engle MD [address] [place] [id number] PCP - General Family Medicine 02/17/20
--- OUTSIDE RECORDS SUMMARY | 2024-12-13 19:16 | XMS_ITS | Encounter Summary ---
Author Organization [facility] Address [address] [place] [address] Encounters * CPT with Medical instED at [facility] on 2024-10-05 Tiriage call returned to patient Daughter who reports patient with vomiting and nausea all this past week. Poor PO intake. Now with weakness and vomited again today yellow /white vomit. Patient BG 121 and BP 135/80 this morning.Daughter has held Trulicity due to vomiting. Patient denies abdominal pain. No fever. { reasonForRequest : , patientReports : , denies&quot ;:[], chiefComplaints : Nausea / Vomiting , pmh : Diabetes Mellitus Type 2, Gastroesophageal Reflux Disease (GERD), Hypertension , allergies : No Known Drug Allergies , otherAllergies : , painAssessment :&quot ; , visitOutcome : , additionalComments : HPI reviewed"} Baseline Creatinine: 0.92 mg/dL, Baseline Hb: 13.7 g/dL, Baseline HCt: 40 % instED visit for female pt with reported nausea and vomiting. Pt is Grenadian speaking and grand daughter translated during visit. Pt was recently started on trulicity for diabetes and experienced a few bouts of vomiting and nausea. Pt presents at home with grand daughter. Pt first took trulicity a few days ago with nausea and vomiting occurring afterwards. No reported nausea at present and no vomiting in last couple of days butpt was concerned and did not take second dose of trulicity. V/S taken as listed. Pt afebrile. Consulted with [facility] Dr. Whitmore who advised pt discontinue trulicity for now and contact PCP on Monday morning for further guidance. Reviewed red flags for ED. Pt education provided. EKG, POC_BLOODWORK, URINE_DIPSTICK Written by Drync on 2024-10-05
--- OUTSIDE RECORDS SUMMARY | 2024-12-13 19:16 | XMS_ITS | Continuity of Care Document ---
Author Name instED, Medical Address [address] [place] [id number] Organization Unknown Address [address] [place] [address] Medications No known medications Problems No known problems
--- OUTSIDE RECORDS SUMMARY | 2024-12-13 19:16 | XMS_ITS | Encounter Summary ---
Author Organization [employer] Address [address] [place] [address] [address] [place] [address] Care Team Providers Care Skein Winding Operator Name Role Phone Guera Engle MD Primary Care Provider [phone] Reason for Visit * Reason Comments Med Refill Encounter Details Date Type Department Care Team (Late Contact Info) Description 04/12/2022 Refill [facility] [address] [place], [place] [phone] Guera Engle MD [address] [place] [address] Insomnia, unspecified type Social History Tobacco Use [...] Department Care Team (Late Contact Info) Description 02/06/2025 11:30 AM EST Office Visit [facility] [address] [place] [address] Guera Engle MD [address] [place] [address] 03/21/2025 10:30 AM EST Office Visit [facility] [address] [place], [place] [phone] Sarah Carvajal, OD [address] [place] [address] documented as of this encounter Visit Diagnoses Diagnosis Insomnia, unspecified type documented in this encounter Care Teams Skein Winding Operator Relationship Specialty Start Date End Date Guera Engle MD [address] [place] [address] PCP - General Family Medicine 02/17/20 documented as of this encounter
[2024-12-13 19:24] LABS: White Blood Count 10.6 X10*3/uL (4.8-10.8)
[2024-12-13 19:25] LABS: Platelet Count 242 X10*3/uL (160-400)
--- NOTE | 2024-12-13 20:25 | PC.NURSE ---
assumed care of pt, pt sitting on side of bed, grand daughter at bedside, reports upper abdominal damir continues stacey 5/10, respirations even and unlabored.
[2024-12-13 20:52] VITALS: BP 133/66; PULSE 100; RESP 18; O2SAT 92
[2024-12-13 21:16] LABS: Appearance Urine Clear; Glucose Urine UA Negative (Negative); PH 6.0 (5.0-9.0); Specific Gravity - Urine 1.010 (1.005-1.025); UMIC TRIGGER UACC YES
[2024-12-13 21:19] LABS: UACC Culture Trigger YES
--- NOTE | 2024-12-13 21:46 | ED_ITS ---
HPI - Abdominal Pain General Chief Complaint: Abdominal Pain Stated Complaint: vomiting, not eating Time Seen by Provider: 12/13/24 20:25 Source: patient and family (Family member at bedside) Mode of arrival: ambulatory Limitations: language barrier (Nauruan-speaking) History of Present Illness ED Provider: JACINTO Ma HPI narrative: 84-year-old female with medical history of TDM, hypothyroidism, osteoporosis, rotator cuff impingement of left shoulder, presents to ED due to 1 week of epigastric abdominal pain and vomiting. Patient states abdominal pain is intermittent and is not associated with exacerbating or relieving factors. Patient states she has had 2 episodes of vomiting today, but was able to eat an empanada this afternoon without vomiting. Patient states last bowel movement was yesterday and was normal for her. Patient states she has had a decerased appetite over the last week. Abdominal pain does not radiate. Denies fevers, chills, chest pain, SOB, difficulty breathing, diarrhea, headaches, visual changes. Related Data Home Medications ?Medication ?Instructions ?Recorded ?Confirmed amlodipine 5 mg tablet 5 mg PO DAILY 08/09/2208/09 aspirin 81 mg tablet,delayed 81 mg PO DAILY 08/09/22 0 08/09/22 release blood sugar diagnostic (FreeStyle 08/09/22 08/09/22 Lite Strips) calcium carbonate 600 mg PO BID 08/09/2208/09 cholecalciferol (vitamin D3) 50 50 mcg PO QAM 08/09/22 08/09/22 mcg (2,000 unit) capsule (Vitamin D3) doxepin 10 mg capsule 10 mg PO BEDTIME 08/09/22 ibuprofen 600 mg tablet (IBU) 600 mg PO NEEDED 07/2808/09/22 lancets 33 gauge (TRUEplus Lancets) 08/09/22 08/09/22 levothyroxine 125 mcg tablet 125 mcg PO QAM 08/09/22 0 08/09/22 lisinopril 10 mg tablet 10 mg PO QAM 08/09/22 metformin 500 mg tablet,extended 1,000 mg PO BID 08/0908/09/22 release 24 hr rosuvastatin 40 mg tablet 40 mg PO BEDTIME 08/09/22 teriparatide 20 mcg/dose (560 20 mcg subcut 1XD 08/09/22 mcg/2.24 mL) subcutaneous pen injector (Forteo) zolpidem 5 mg tablet 5 mg PO BEDTIME PRN Insomnia 08/09/22 08/09/22 Previous Rx's ?Medication ?Instructions ?Recorded pen needle, diabetic 29 gauge x ##100 08/09/2202/28 (UltiCare Pen Needle) docusate sodium 100 mg capsule 100 mg PO DAILY PRN con stipation 08/10/22 (Colace) #30 caps polyethylene glycol 3350 17 17 g PO DAILY PRN constipa tion 08/10/22 gram/dose oral powder (Miralax) #119 grams ciprofloxacin HCl 500 mg tablet 500 mg PO BID 10 days #20 tabs 12/14/24 metoclopramide HCl 5 mg tablet 5 mg PO DAILY #10 tabs 12/14/24 (Reglan) metronidazole 500 mg tablet 500 mg PO BID 10 days #20 tabs 12/14/24 Allergies Allergy/AdvReac Type Severity Reaction Status Date / Time No Known Allergies Allergy Mild NKA Verified 12/13/24 18:37 Review of Systems Review of Systems CONST: Negative for fever, body aches and chills. HENT: Negative for neck pain/stiffness, headache, congestion, sore throat, swelling. EYES: Negative for discharge/pain or vision changes. RESP: Negative for cough/hemoptysis and shortness of breath. CV: Negative chest pain, difficulty breathing, palpitations. ABD: POS epigastric pain, nausea, vomiting. : Negative increase frequency, dysuria, blood in urine or stool. MUSC: Negative for muscle aches, edema. SKIN: Negative rash, lesions/sores. NEURO: Negative headache, dizziness, weakness. Yes all other systems are reviewed and are negative PMFSH Past Medical History Medical History Abnormal thyroid biopsy Diabetes HTN (hypertension) Hypothyroidism Non-toxic multinodular goiter Osteoporosis Vitamin D deficiency Surgical History No history of previous surgery Family History Family History Father Diabetes Mother Depression Social History Social History Alcohol intake: never Patient Tobacco Use Status: Never used Tobacco Smoked in Last 30 Days: No Advance Directives: No Advance Directives Information Provided: No service: No Current occupational status: 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 Physical Exam ED Vital Signs: Vital Signs - 24 hr 12/13/24 18:34 12/13/24 20:52 12/13/24 22:01 Temperature 97.8 F Pulse Rate 106 H 100 91 Respiratory Rate 16 18 18 Blood Pressure 110/56 L 133/66 139/63 Pulse Oximetry 94 92 92 Oxygen Delivery Method Room Air Room Air Room Air BMI result Body Mass Index 22.7 GENERAL APPEARANCE: ?AxOx4, generally well-appearing, no acute distress. HEENT: ?NC, AT. MMM. EOMI, clear conjunctiva, oropharynx clear. NECK: ?Supple without lymphadenopathy.? No stiffness or restricted ROM. HEART:? Normal rate and regular rhythm, normal S1/S2, no m/r/g LUNGS:? CTAB, moving air well. No crackles or wheezes are heard. ABDOMEN: ?Soft, nondistended, no rigidity, TTP of epigastric, and periumbilical region, negative Angulo's sign, no rebound tenderness BACK: No CVAT, no obvious deformity. EXTREMITIES: ?Without cyanosis, clubbing or edema. NEUROLOGICAL: ?Grossly nonfocal. Alert and oriented, moving all 4 extremities. Observed patient ambulating to bathroom without ataxic/antalgic gait Skin: ?Warm and dry without any rash. Medical Decision Making Medical Decision Making MDM Narrative: 84-year-old female with medical history of TDM, hypothyroidism, osteoporosis, rotator cuff impingement of left shoulder, presents to ED due to 1 week of consistent epigastric abdominal pain and vomiting, with 2 episodes of vomiting earlier today. Last bowel movement yesterday, was normal for her. VS on initial observation-BP 139/63, pulse rate of 91, respiratory rate of 18, afebrile with oral temp of 97.8?, O2 saturation 92% on room air. Physical exam reveals abdomen is soft, nondistended, no rigidity, TTP of epigastric, and periumbilical region, negative Angulo's sign, no rebound tenderness EKG reveals sinus rhythm with short PA, right bundle branch block, no significant ST-elevation/depression, T-wave abnormality, lengthened QT, initial troponin WNL at 3.7, 2nd Labs without leukocytosis/leukopenia, normocytic anemia with a hemoglobin of 11.7, hematocrit of 35.1, serum glucose of 161, Lipase WNL at 77, no electrolyte abnormalities. CT abdomen pelvis reveals stable wedge compression fracture of T1, cecum and proximal ascending colon segmental mural thickening suggestive of nonspecific colitis versus carcinoma, hiatal hernia, moderate calcified atherosclerotic disease of the abdominal aorta, moderate osteopenia. Patient with 1 week of abdominal pain and intermittent vomiting with 2 episodes today. During my time evaluating her, her nausea and abdominal pain were very mild and did not want zofran at the time for nausea control. Patient was given 1L IV fluids. CT reveals non specific colitis vs carcinoma. Due to patients symptoms will discharge with 10 course of ciprofloxacin and flagyl to cover for colitis. I discussed these ambiguous findings on imaging with the patient and counseled her to follow up with her PCP and placed referral for GI follow up. I discussed discharge with zofran to manage nausea at home, however, patient states she has zofran at home and doesnt work for her. I will discharge with reglan to trial for managment of nausea. Daughter is now at the bedside and I discussed these findings with her as well. Daughter states she will call the PCP monday morning for follow up. Patient well enough to go home for self care. Patient and her daughter are in agreement with the plan Differential Diagnosis Differential Diagnoses: The differential diagnosis associated with the presentation includes ACS Acute abdomen Nephrolithiasis Electrolyte abnormality UTI Admission/Observation Consideration of admission/observation: Escalation of care including admission/observation considered Lab Data MDM Lab Attestation statement: I reviewed the patient's lab results. 12/13/24 18:50 12/13/24 18:50 Labs: Lab Results 12/13/24 12/13/24 12/13/24 Range/Units 18:50 21:08 22:06 WBC 10.6 (4.8-10.8) X10*3/uL RBC 4.16 L (4.20-5.50) X10*6/uL Hgb 11.7 L (12.0-16.0) g/dl Hct 35.1 L (37.0-47.0) % MCV 84.4 (80.0-98.0) fL MCH 28.1 (27.0-33.0) pg MCHC 33.3 (31.0-35.0) g/dl RDW 12.2 (11.0-16.0) % Plt Count 242 (160-400) X10*3/uL MPV 10.3 (9.4-12.3) fL Immature Gran % (Auto) 0.3 (0.0-0.4) % Neut % (Auto) 61.2 (45-73) % Lymph % (Auto) 29.4 (20-40) % Real % (Auto) 7.1 (2-11) % Eos % (Auto) 1.4 (0-4) % Baso % (Auto) 0.6 (0-2) % Lymph # (Auto) 3.1 (1.2-4.9) X10*3/uL Real # (Auto) 0.8 (0.1-1.2) X10*3/uL Eos # (Auto) 0.2 (0.0-0.4) X10*3/uL Baso # (Auto) 0.1 (0.0-0.2) X10*3/uL Abs Immat Gran (auto) 0.03 (0.00-0.03) X10*3/uL Absolute Neuts (auto) 6.5 (2.0-8.3) x10*3/uL Absolute Nucleated RBC 0.000 (0.0-0.012) X10*3/uL Nucleated RBC % (auto) 0.0 (0.0-0.2) /100WBC Smear Tech's Comments VERIFIED Sodium 141 (135-145) mmol/L Potassium 3.8 (3.3-5.1) mmol/L Chloride 107 (96-108) mmol/L Carbon Dioxide 19 L (22-29) mmol/L Anion Gap 19 (12-20) BUN 8 L (9-16) mg/dL Creatinine 1.31 (0.5-1.4) mg/dL Estim Creat Clear Calc 23.7 Estimated GFR 39 Random Glucose 161 H (60-115) mg/dL Calcium 9.3 (8.4-10.2) mg/dL Magnesium 1.7 (1.6-2.6) mg/dL Total Bilirubin 0.4 (0.0-1.0) mg/dL Direct Bilirubin 0.1 (0.0-0.5) mg/dL AST 23 (5-31) U/L ALT 8 (0-31) U/L Alkaline Phosphatase 95 (39-117) U/L Troponin I High Sens 3.7 (<3.5-17.0) ng/L Total Protein 7.3 (6.5-8.0) g/dL Albumin 4.6 (3.5-5.0) g/dL Lipase 77 (8-78) U/L Urine Color Yellow Urine Appearance Clear Urine pH 6.0 (5.0-9.0) Ur Specific [place] 1.010 (1.005-1.025) Urine Protein 100 (2+) H (Neg-Trace) mg/dL Urine Glucose (UA) Negative (Negative) mg/dL Urine Ketones Trace (Negative) mg/dL Urine Blood Trace H (Negative) Urine Nitrite Negative (Negative) Ur Leukocyte Esterase Small (1+) H (Negative) Urine RBC 0-2 (0-2) /HPF Urine WBC 6-10 H (0-5) /HPF Ur Squamous Epith Cells 6-10 (0-2) /HPF Urine Bacteria None Seen (None Seen) Hyaline Casts 0-2 (0-2) /LPF COVID-19 (ALEX) Negative (Negative) COVID-19 Clin Com See Note Influenza Type A (SAAD) Negative (Negative) Influenza Type B (SAAD) Negative (Negative) Influenza A & B Note See Note 12/13/24 Range/Units 23:42 WBC (4.8-10.8) X10*3/uL RBC (4.20-5.50) X10*6/uL Hgb (12.0-16.0) g/dl Hct (37.0-47.0) % MCV (80.0-98.0) fL MCH (27.0-33.0) pg MCHC (31.0-35.0) g/dl RDW (11.0-16.0) % Plt Count (160-400) X10*3/uL MPV (9.4-12.3) fL Immature Gran % (Auto) (0.0-0.4) % Neut % (Auto) (45-73) % Lymph % (Auto) (20-40) % Real % (Auto) (2-11) % Eos % (Auto) (0-4) % Baso % (Auto) (0-2) % Lymph # (Auto) (1.2-4.9) X10*3/uL Real # (Auto) (0.1-1.2) X10*3/uL Eos # (Auto) (0.0-0.4) X10*3/uL Baso # (Auto) (0.0-0.2) X10*3/uL Abs Immat Gran (auto) (0.00-0.03) X10*3/uL Absolute Neuts (auto) (2.0-8.3) x10*3/uL Absolute Nucleated RBC (0.0-0.012) X10*3/uL Nucleated RBC % (auto) (0.0-0.2) /100WBC Smear Tech's Comments Sodium (135-145) mmol/L Potassium (3.3-5.1) mmol/L Chloride (96-108) mmol/L Carbon Dioxide (22-29) mmol/L Anion Gap (12-20) BUN (9-16) mg/dL Creatinine (0.5-1.4) mg/dL Estim Creat Clear Calc Estimated GFR Random Glucose (60-115) mg/dL Calcium (8.4-10.2) mg/dL Magnesium (1.6-2.6) mg/dL Total Bilirubin (0.0-1.0) mg/dL Direct Bilirubin (0.0-0.5) mg/dL AST (5-31) U/L ALT (0-31) U/L Alkaline Phosphatase (39-117) U/L Troponin I High Sens 3.5 (<3.5-17.0) ng/L Total Protein (6.5-8.0) g/dL Albumin (3.5-5.0) g/dL Lipase (8-78) U/L Urine Color Urine Appearance Urine pH (5.0-9.0) Ur Specific [place] (1.005-1.025) Urine Protein (Neg-Trace) mg/dL Urine Glucose (UA) (Negative) mg/dL Urine Ketones (Negative) mg/dL Urine Blood (Negative) Urine Nitrite (Negative) Ur Leukocyte Esterase (Negative) Urine RBC (0-2) /HPF Urine WBC (0-5) /HPF Ur Squamous Epith Cells (0-2) /HPF Urine Bacteria (None Seen) Hyaline Casts (0-2) /LPF COVID-19 (ALEX) (Negative) COVID-19 Clin Com Influenza Type A (SAAD) (Negative) Influenza Type B (SAAD) (Negative) Influenza A & B Note Independent Interpretation I performed an independent interpretation of an: EKG and CT Scan Interpretation: I personally interpreted the EKG reveals sinus rhythm with a short PA interval, right bundle-branch block, no ST-elevation/depression, T-wave abnormality, lengthened QT Vent. Rate : 86 BPM Atrial Rate : 86 BPM P-R Int : 110 ms QRS Dur : 122 ms QT Int : 398 ms P-R-T Axes : 39 8 25 degrees QTcB Int : 476 ms Sinus rhythm with short PA Right bundle branch block Abnormal ECG When compared with ECG of 08-Aug-2022 21:34, No significant change was found Radiology Impression Discussion of test interpretation with radiology: I have reviewed the radiologist's reading. Radiologist Impression: CT abdomen and pelvis Findings: Bibasilar dependent subsegmental atelectasis. Hiatal hernia. Left renal interpolar region cortical low-attenuation lesion, 1.9 cm; renal cysts. No bowel obstruction, pneumoperitoneum, or pneumatosis. Moderate calcified atherosclerotic disease of the abdominal aorta. Segmental mural thickening of the cecum and proximal ascending colon. The appendix is not grossly identified. Moderate osteopenia. Wedge compression fracture of T1 vertebral body superior endplate with less than 50% vertebral body height loss, stable. IMPRESSION: 1. Wedge compression fracture of T1 vertebral body superior endplate with less than 50% height loss, stable. 2. Cecum and proximal ascending colon segmental mural thickening; nonspecific colitis versus carcinoma. 3. Hiatal hernia. 4. Moderate calcified atherosclerotic disease of the abdominal aorta. 5. Moderate osteopenia. This document has been electronically signed by: Sean Castillo MD on 12/13/2024 23:46:33 Dictated By: Sean Castillo MD Signed By: <Electronically signed by Sean Castillo MD in OV> 12/13/24 [id number] Independent Historian Clinical information obtained from an independent historian. History obtained from or confirmed by: Other (Family member at bedside corroborating history) External Record Review External record reviewed: Inpatient record, Office record and Outpatient record Chronic Conditions Patient?s care impacted by: Diabetes and Other (Hypothyroidism, osteoporosis, rotator cuff impingement of left shoulder) Social Determinants Patient?s care significantly limited by Social Determinants of Health including: Other Social Determinant of Health Medications Administered Discontinued Medications Generic Name Dose Route Start Last Admin Trade Name Na PRN Reason Stop Dose Admin Lactated Ringer's 1,000 mls @ 999 mls/hr 12/13/24 21:52 12/13/24 22:07 Lr IV 12/13/24 22:52 999 mls/hr .Q1H1M ONE Administration Iohexol 100 ml 12/13/24 22:29 12/13/24 22:30 Iohexol 350 Mg/Ml 100 Ml Infus..Btl IV 12/13/24 22:30 85 ml ONCE ONE Administration Discharge Plan Discharge Clinical Impression: Abdominal pain Patient Disposition: Home, Self-Care Additional Instructions: You were evaluated in the ED today due to abdominal pain, nausea and vomiting. Your lab work did not show a significant increase of white blood cell count indicative of infection, however you did have a stable anemia with a hemoglobin of 11.7, and hematocrit of 35.1. Your EKG revealed sinus rhythm with a short PA interval and right bundle branch block, this is nonemergent EKG finding. Your troponins which is a protein released by the heart when under stress or damage were both within normal limits at 3.7 and 3.5, these are non emergent findings. Your urine showed evidence of protein, with trace blood, without urine bacteria seen. The CT imaging of your abdomen and pelvis revealed a stable compression fracture of the T1 vertebra, with thickening of the cecum and ascending colon suggestive of possible colitis versus carcinoma. You have a possible cancer within the bowel, you need to follow up with your primary care doctor for referral to photoresist contact printer. I will provide referral to Gastroenterology however you still need to see your primary care doctor. Please call your primary care doctor and photoresist contact printer number provided in these instructions on Monday morning. You are being prescribed a 10 day course of ciprofloxacin, and Flagyl to cover for possible colitis. I offered to send Zofran however you already have a prescription of Zofran at home, and states this did not work so I will send you a prescription of Reglan that you can trial for management of nausea at home. Please return to the ED if you experience fevers over 100.4?, worsening abdominal pain, inability to have a bowel movement, inability to pass gas from the rectum, worsening nausea, worsening vomiting, bloody stool, chest pain, shortness of breath, weakness or any new/worsening/concerning symptoms. Prescriptions: New metoclopramide HCl [Reglan] 5 mg tablet 5 mg PO DAILY Qty: 10 0RF metronidazole 500 mg tablet 500 mg PO BID 10 Days Qty: 20 0RF ciprofloxacin HCl 500 mg tablet 500 mg PO BID 10 Days Qty: 20 0RF No Action (DME) pen needle, diabetic [UltiCare Pen Needle] 29 gauge x 1/2 needle See Rx Instructions .ROUTE .COMPLEX Qty: 100 5RF Dose Instruction: USE ONCE DAILY DIRECTED Rx Instructions: USE ONCE DAILY DIRECTED (DME) FreeStyle Lite Strips Strip 1 strip MISCELLANEOUS BID amlodipine 5 mg tablet 5 mg PO DAILY doxepin 10 mg capsule 10 mg PO BEDTIME aspirin 81 mg tablet,delayed release (DR/EC) 81 mg PO DAILY calcium carbonate 600 mg calcium (1,500 mg) tablet 600 mg PO BID levothyroxine 125 mcg tablet 125 mcg PO QAM lisinopril 10 mg tablet 10 mg PO QAM zolpidem 5 mg tablet 5 mg PO BEDTIME PRN (Reason: Insomnia) ibuprofen [IBU] 600 mg tablet 600 mg PO NEEDED metformin 500 mg tablet extended release 24 hr 1,000 mg PO BID Rx Instructions: take two tablets by mouth twice daily- morning and evening rosuvastatin 40 mg tablet 40 mg PO BEDTIME cholecalciferol (vitamin D3) [Vitamin D3] 50 mcg (2,000 unit) capsule 50 mcg PO QAM Forteo 20 mcg/dose (600mcg/2.4mL) pen injector 20 mcg subcut 1XD (DME) lancets [TRUEplus Lancets] 33 gauge misc MISCELLANEOUS BID docusate sodium [Colace] 100 mg capsule 100 mg PO DAILY PRN (Reason: constipation) Qty: 30 0RF polyethylene glycol 3350 [Miralax] 17 gram/dose powder 17 g PO DAILY PRN (Reason: constipation) Qty: 119 0RF Referrals: [facility] [Provider Group, Gastroenterology] Print Language: Nauruan
--- NOTE | 2024-12-13 21:48 | ECG_ITS ---
Test Reason : ABDOMINAL PAIN Blood Pressure : */* mmHG Vent. Rate : 86 BPM Atrial Rate : 86 BPM P-R Int : 110 ms QRS Dur : 122 ms QT Int : 398 ms P-R-T Axes : 39 8 25 degrees QTcB Int : 476 ms Sinus rhythm with short DE Right bundle branch block Abnormal ECG When compared with ECG of 08-Aug-2022 21:34, No significant change was found Referred By: Francisca Ma Electronically Signed By: Fernandez Kirby
[2024-12-13 21:59] LABS: Lipase 77 U/L (8-78)
[2024-12-13 22:01] VITALS: BP 139/63; PULSE 91; RESP 18; O2SAT 92
[2024-12-13] MEDS: Lactated Ringers 1,000 ML 999 ML IV (22:07)
[2024-12-13 22:09] LABS: Troponin-I High Sensitivity 3.7 ng/L (<3.5-17.0)
--- NOTE | 2024-12-13 22:09 | PC.NURSE ---
LR running per MAR, IV insertion on R AC, pt tolerated well.
[2024-12-13] MEDS: iohexoL 350 MG/ML 100 ML INFUS..BTL IV (22:30)
[2024-12-13 22:34] LABS: IDNOW Serial# 55D5AD1C
[2024-12-13 22:35] LABS: COVID-19 Test Negative (Negative); IDNOW Serial# 58CA691E; Influenza B2 Negative (Negative)
[2024-12-14 00:11] LABS: Troponin-I High Sensitivity 3.5 ng/L (<3.5-17.0)
[2024-12-14 00:49] VITALS: BP 129/67; PULSE 100; RESP 18; TEMP 36.2; O2SAT 94
[2024-12-14 01:17] VITALS: BP 129/67; PULSE 100; RESP 18; TEMP 36.2; O2SAT 94
== END 2024-12-14 01:19 | disposition home or self-care (01) ==
PROVIDERS: Emergency Provider Emergency Medicine; PCP Family Medicine
DX: R10.13 Epigastric pain (principal); M48.54XA Collapsed vertebra, not elsewhere classified, thoracic region, initial encounter for fracture; K44.9 Diaphragmatic hernia without obstruction or gangrene; R11.2 Nausea with vomiting, unspecified; R94.31 Abnormal electrocardiogram [ECG] [EKG]; I45.10 Unspecified right bundle-branch block; Z79.899 Other long term (current) drug therapy; Z11.52 Encounter for screening for COVID-19
CPT/HCPCS: 36415; 74177; 80053; 81001; 82248; 83690; 83735; 84484; 85025; 87086; 87502; 87635; 93005; 96360; 96361; 99285; J7120; Q9967

== ENCOUNTER → 2024-12-13 21:48 | Outpatient (BNV) | payer OTHER, SELFPAY | PROVIDERS: Emergency Provider Emergency Medicine; PCP Family Medicine; Visit Provider Internal Medicine Cardiovascular Disease | DX: I45.10 Unspecified right bundle-branch block (principal) | CPT/HCPCS: 93010 ==

== ENCOUNTER → 2024-12-13 21:48 | Outpatient (BNV) | payer OTHER, SELFPAY | PROVIDERS: Emergency Provider Emergency Medicine; PCP Family Medicine; Visit Provider Radiology Diagnostic Radiology | DX: K44.9 Diaphragmatic hernia without obstruction or gangrene (principal); N28.1 Cyst of kidney, acquired | CPT/HCPCS: 74177 ==